=== PATIENT | female | born 1935 | race Caucasian/White ===

== ENCOUNTER 2016-11-23 08:52 | Emergency (ER) | payer MEDICARE ==
[~2016-11-23] VITALS: Ht 165.1 cm; Wt 72.6 kg
[~2016-11-23 08:52] MED LIST: AMBIEN10 M1 PO; AMBIEN5 MG PO; ATENOLOL50 MG PO; CELEBREX100 MG PO; CELEBREX200 MG PO; CETIRIZINE10 MG PO; COLSALIDE IMPR0.6 MG PO; COUMADIN10 M1 PO; COUMADIN3 M1 PO; COUMADIN7.5 M1 PO; DILTIAZEM 24HR120 MG PO; DILTIAZEM CD240 MG PO; DOXYCYCLINE100 M3 PO; DULE1ARO INH; DULE1ARO1 INH; DULER200 INH; DULER200 PO; EFFEXOR XR75 M2 PO; FOSAMAX70 M1 PO; FOSAMAX70 MG PO; IMDUR SA30 MG PO; IMDUR30 MG PO; ISOSORBIDE30 MG PO; K-DUR20 MEQ PO; K-TAB20 MEQ PO; LANOXIN0.125 MG PO; LASIX20 MG PO; LASIX40 MG PO; LASIX80 MG PO; LEVOTHYROXIN0.125 M1 PO; LEVOTHYROXIN0.125 MG PO; LEVOTHYROXINE0.15 M1 PO; METFORMIN500 MG PO; METOPROLOL TART50 M1 PO; MYSOLINE50 M1 PO; MYSOLINE50 M2 PO; OXYGEN NAS; PROAIR HFA0.09 MG/AC INH; PROVENTIL0.09 MG/A1 INH; SIMVASTATIN40 MG PO; SPIRIVA -- 3018 MCG INH; SPIRIVA18 MCG PO; Synthroid,Lev125 MCG PO; TRAZODONE50 MG PO; VENLAFAXINE75 M1 PO; VENLAFAXINE75 MG PO; VICODIN 5-3001 EACH PO; VICODIN 500 MG-1 TAB PO; VITAMIN D350000 UNIT PO; VITAMIN D50000 I3 PO; XANAX0.25 MG PO; XANAX0.5 MG PO; ZOCOR40 MG PO; ZYRTEC10 MG PO
[2016-11-23 09:07] VITALS: BP 117/72
[2016-11-23 09:31] LABS: BASO % 0.7 % (0.0-1.0); EOS # 0.1 10*3/uL (0.0-0.4); EOS % 1.3 % (1.0-4.0); HEMATOCRIT 28.9 % (37.0-47.0); HEMOGLOBIN 9.2 g/dl (12.0-16.0); LYMPH # 0.7 10*3/uL (1.3-4.4); LYMPH % 13.5 % (27.0-41.0); MEAN CELL VOLUME 93.5 fl (81.0-99.0); MEAN CORPUSCULAR HGB 29.8 pg (27.0-31.0); MEAN CORPUSCULAR HGB CONC 31.8 g/dl (33.0-37.0); MEAN PLATELET VOLUME 9.1 fl (9.6-12.3); MONO # 0.4 10*3/uL (0.1-1.0); MONO % 6.6 % (3.0-9.0); NEUT # 4.2 10*3/uL (2.3-7.9); NEUT % 77.3 % (47.0-73.0); PLATELET COUNT AUTOMATED 187 10*3/uL (130-400); RED BLOOD COUNT 3.09 10*6/uL (4.10-5.10); RED CELL DISTRI WIDTH 15.3 % (0-14.5); WHITE BLOOD COUNT 5.4 10*3/uL (4.8-10.8)
[2016-11-23 09:39] LABS: INTERNATIONAL NORM RATIO 2.7 (2.0-3.5); PROTHROMBIN TIME 30.7 SECONDS (9.0-12.4)
[2016-11-23 09:51] LABS: ALBUMIN 3.4 gm/dl (3.1-4.5); ALKALINE PHOSPHATASE 60 U/L (45-117); BILIRUBIN, TOTAL 0.2 mg/dl (0.2-1.0); BUN 25 mg/dl (7-24); CARBON DIOXIDE 27 mmol/L (21-32); CHLORIDE 102 mmol/L (98-107); CPK 66 U/L (26-192); EST GLOM FILT AFRICAN AMERICAN 52 ml/min; GLUCOSE 106 mg/dL (65-99); MAGNESIUM 2.2 mg/dL (1.5-2.1); POTASSIUM 4.3 mmol/L (3.5-5.1); SGOT/AST 20 IU/L (3-35); SGPT/ALT 14 U/L (12-78); SODIUM 138 mmol/L (136-145)
[2016-11-23 09:52] LABS: CKMB 1.8 ng/ml (0.5-3.6); TROPONIN I < 0.015 ng/ml (<0.045)
== END 2016-11-23 12:19 | disposition home or self-care (01) ==
LOC: ED 08:52
PROVIDERS: Nurse Practitioner Family
DX: S22.42XA Multiple fractures of ribs, left side, initial encounter for closed fracture (principal); I48.91 Unspecified atrial fibrillation; I25.10 Atherosclerotic heart disease of native coronary artery without angina pectoris; J44.9 Chronic obstructive pulmonary disease, unspecified; E11.9 Type 2 diabetes mellitus without complications; I25.2 Old myocardial infarction; I10 Essential (primary) hypertension; Z86.73 Personal history of transient ischemic attack (TIA), and cerebral infarction without residual deficits; Z86.2 Personal history of diseases of the blood and blood-forming organs and certain disorders involving the immune mechanism; Z90.49 Acquired absence of other specified parts of digestive tract; Z90.710 Acquired absence of both cervix and uterus; Z95.1 Presence of aortocoronary bypass graft; Z96.651 Presence of right artificial knee joint; Z79.899 Other long term (current) drug therapy; W19.XXXA Unspecified fall, initial encounter; Y93.89 Activity, other specified; Y92.89 Other specified places as the place of occurrence of the external cause; Y99.9 Unspecified external cause status

== ENCOUNTER 2016-12-10 15:06 | Emergency (ER) | payer MEDICARE ==
[~2016-12-10] VITALS: Ht 157.4 cm; Wt 74.8 kg
[2016-12-10 15:13] VITALS: BP 134/63
[2016-12-10] MEDS ORDERED: VENLAFAXINE75 M1 PO (15:18)
[2016-12-10] MEDS ORDERED: METOLAZONE2.5 MG PO (15:18)
[2016-12-10] MEDS ORDERED: LOPRESSOR50 M1 PO (15:20)
[2016-12-10] MEDS ORDERED: CARDIZEM CD120 M2 PO (15:20)
[2016-12-10] MEDS ORDERED: ALBUTEROL SULF0.5 M1 INH (15:21)
[2016-12-10 15:34] LABS: BASO # 0.1 10*3/uL (0.0-0.1); BASO % 0.8 % (0.0-1.0); EOS # 0.3 10*3/uL (0.0-0.4); EOS % 3.7 % (1.0-4.0); HEMATOCRIT 35.8 % (37.0-47.0); HEMOGLOBIN 11.6 g/dl (12.0-16.0); IG # 0.1 10*3/uL (0.0-0.1); LYMPH # 1.4 10*3/uL (1.3-4.4); LYMPH % 19.4 % (27.0-41.0); MEAN CELL VOLUME 90.6 fl (81.0-99.0); MEAN CORPUSCULAR HGB 29.4 pg (27.0-31.0); MEAN CORPUSCULAR HGB CONC 32.4 g/dl (33.0-37.0); MEAN PLATELET VOLUME 9.7 fl (9.6-12.3); MONO # 0.7 10*3/uL (0.1-1.0); NEUT # 4.8 10*3/uL (2.3-7.9); NEUT % 65.4 % (47.0-73.0); PLATELET COUNT AUTOMATED 272 10*3/uL (130-400); RED BLOOD COUNT 3.95 10*6/uL (4.10-5.10); RED CELL DISTRI WIDTH 14.4 % (0-14.5); WHITE BLOOD COUNT 7.4 10*3/uL (4.8-10.8)
[2016-12-10 15:42] LABS: INTERNATIONAL NORM RATIO 2.7 (2.0-3.5); PROTHROMBIN TIME 30.5 SECONDS (9.0-12.4)
[2016-12-10 15:50] LABS: ALBUMIN 3.8 gm/dl (3.1-4.5); ALKALINE PHOSPHATASE 87 U/L (45-117); BILIRUBIN, TOTAL 0.5 mg/dl (0.2-1.0); BUN 31 mg/dl (7-24); CARBON DIOXIDE 30 mmol/L (21-32); CHLORIDE 93 mmol/L (98-107); CPK 53 U/L (26-192); EST GLOM FILT AFRICAN AMERICAN 44 ml/min; GLUCOSE 110 mg/dL (65-99); LDH 239 U/L (84-246); MAGNESIUM 1.9 mg/dL (1.5-2.1); POTASSIUM 3.6 mmol/L (3.5-5.1); SGOT/AST 26 IU/L (3-35); SGPT/ALT 11 U/L (12-78); SODIUM 136 mmol/L (136-145); TOTAL PROTEIN 8.2 gm/dL (6.4-8.2)
[2016-12-10 15:51] LABS: CKMB 1.2 ng/ml (0.5-3.6)
[2016-12-10 15:59] LABS: TROPONIN I < 0.015 ng/ml (<0.045)
[2016-12-10 17:20] LABS: BILIRUBIN NEGATIVE (NEGATIVE); BLOOD NEGATIVE (NEGATIVE); CLARITY CLEAR (CLEAR); COLOR YELLOW (YELLOW); GLUCOSE NEGATIVE (NEGATIVE); KETONE NEGATIVE (NEGATIVE); LEUKO ESTERASE NEGATIVE (NEGATIVE); NITRITE NEGATIVE (NEGATIVE); PH 6.5 (5.0-9.0); PROTEIN NEGATIVE (NEGATIVE); UROBILINOGEN 0.2 E.U./dl (0.2-1.0)
[2016-12-10 17:30] LABS: BACTERIA TRACE; HYALINE CAST 0-3; URINE REFLEX COMMENT NO (NO)
== END 2016-12-10 18:18 | disposition home or self-care (01) ==
LOC: ED 15:06
PROVIDERS: Physician Assistant
DX: S01.81XA Laceration without foreign body of other part of head, initial encounter (principal); S49.91XA Unspecified injury of right shoulder and upper arm, initial encounter; Z79.899 Other long term (current) drug therapy; Z79.02 Long term (current) use of antithrombotics/antiplatelets; W18.39XA Other fall on same level, initial encounter; Y93.89 Activity, other specified; Y92.090 Kitchen in other non-institutional residence as the place of occurrence of the external cause; Y99.9 Unspecified external cause status

== ENCOUNTER → 2016-12-17 | Outpatient (CLI) | payer MEDICARE ==
[~2016-12-17] MED LIST changes: +ALBUTEROL SULF0.5 M1 INH; +CARDIZEM CD120 M2 PO; +LOPRESSOR50 M1 PO; +METOLAZONE2.5 MG PO
== END | disposition home or self-care (01) ==
LOC: ORTHO 01:19
DX: S42.91XA Fracture of right shoulder girdle, part unspecified, initial encounter for closed fracture (principal); X58.XXXA Exposure to other specified factors, initial encounter; Y93.89 Activity, other specified; Y92.89 Other specified places as the place of occurrence of the external cause; Y99.8 Other external cause status

== ENCOUNTER 2016-12-27 17:46 | Inpatient (IN) | payer MEDICARE ==
[~2016-12-27] VITALS: Ht 160 cm; Wt 74.2 kg
--- NOTE | ~2016-12-27 | CON ---
[place], [place] REPORT OF CONSULTATION NAME: [facility] [id number] UNIT #: [id number] ROOM: 409 DOCTOR: LEROY VELAZQUEZ MD BIRTHDATE: [birth year] DOS: 12/29/2016 HISTORY OF PRESENT ILLNESS: An 81-year-old patient who presented with a chief complaint of epigastric abdominal pain, prolonged INR, toxic level at greater than 7.6, this has been addressed with PT/PTT of 91 seconds and 60 seconds respectively. She had a panel of workup done. Chest x-ray was right pleural effusion, mild cardiac enlargement, otherwise unremarkable. CT scan of the head, no acute pathology was seen. Cervical spine, no acute fracture. Lactic acid was normal. CBC differential, H and H of 8 and 27, platelet count 271. Comprehensive metabolic panel: BUN and creatinine 25 and 1.0. INR has been followed up to 6.9 and eventually to 3.2 today morning. Urine culture greater than 100,000, heavy Gram-positive cocci. She is on antibiotic Rocephin 1 gram. Her latest CBC: H and H of 9 and 28. ____ LABORATORY DATA: Reviewed. Records reviewed. Basic metabolic panel reassessed. PAST MEDICAL HISTORY: COPD, congestive heart failure, coronary artery disease, diabetes mellitus, gout, CVA and myocardial infarction. PAST SURGICAL HISTORY: Cholecystectomy, coronary artery bypass, hysterectomy, appendectomy. SOCIAL HISTORY: No smoker, nonalcohol consumer. FAMILY HISTORY: Noncontributory. ALLERGIES: To no known medications. MEDICATIONS: Medication list has been reviewed on Celebrex as well as on Coumadin. Coumadin on hold. REVIEW OF SYSTEMS: HEENT: Denies double vision, blurred vision. RESPIRATORY: Some shortness of breath. CARDIOVASCULAR: Denies chest pain. DIGESTIVE SYSTEM: GI bleed, prolonged INR, and anemia. PHYSICAL EXAMINATION: VITAL SIGNS: Stable and afebrile. HEENT: Within normal limits. Alert. NECK: Supple, no thyromegaly, no cervical lymphadenopathy. CHEST: Symmetric anatomy, equal expansion. No wheeze, no rhonchi. HEART: ____. No rub. EXTREMITIES: 2+ pedal edema. NEUROLOGIC: Alert and oriented. IMPRESSION: Urinary tract infection and anemia, Coumadin toxicity, on Celebrex possibility. [place], [place] REPORT OF CONSULTATION NAME: ELIZABETH JUÁREZ UNIT #: [id number] ROOM: 409 DOCTOR: CAROLINE BECKER,LEROY BIRTHDATE: [birth year] PLAN AND DISCUSSION: We are going to await further correction of INR by tomorrow and then tomorrow, we will give her prep for assessment of upper and lower GI tract. Once the INR is corrected tomorrow, then we will get the chance to prep upper and lower GI tract and then EGD and colonoscopy on Tuesday. OTHER ADJUNCTIVE DIAGNOSES: As outlined in paragraph past medical, surgical history. LEROY VELAZQUEZ MD CM:CONSTR:REPORT OF CONSULTATION 1148 12/30/16 0151 interface
--- NOTE | ~2016-12-27 | O ---
[place], [place] OPERATIVE NOTE NAME: ELIZABETH JUÁREZ UNIT #: [id number] ROOM: 409 DOCTOR: LEROY VELAZQUEZ MD BIRTHDATE: [birth year] DOS: 12/31/2016 GASTROENDOSCOPIC REPORT HISTORY OF PRESENT ILLNESS: This is an 81 years old patient who has presented with anemia, GI bleed and prolonged INR. Multiple hematomas on Coumadin for corrected INR. PROCEDURE: Today's procedure part of investigation is panendoscopy, colonoscopy. PREMEDICATION: Versed and Diprivan. SCOPE: Olympus forward-viewing gastroscope Q10 video. REPORT: After putting the patient in the left lateral position and after application of lubricant to the scope, the scope was introduced. Thereafter, under direct visualization, I advanced through the length of the esophagus without difficulty. Distal esophageal ulcer, hiatal hernia was noticed. Gastric pouch was entered. Gastritis was seen. Duodenal bulb, second and third part within normal limits. No biopsy obtained, photographic series done. The patient extubated, tolerated procedure well. IMPRESSION: Distal esophageal ulcer, hiatal hernia, gastritis, status post biopsy. PLAN AND DISCUSSION: PPI would be sufficed with Protonix 40 mg 1 q. day and we are going to proceed with colonoscopy. GASTROENDOSCOPIC REPORT INDICATIONS: The patient has presented with a chief complaint of anemia, drop in H and H, GI bleed. . PROCEDURE: Today's procedure part of investigation is colonoscopy. PREMEDICATION: Versed and Diprivan. SCOPE: Olympus forward-viewing colonoscope 10L video. REPORT: After putting the patient in the left lateral position and after application of lubricant to rectal pouch and digital examination, scope was introduced. Thereafter, under direct visualization, I advanced through the length of colon with great difficulty. Presence of solid stool hinders visualization and limits visualization to only 10%. The patient had to be extubated, tolerated the procedure well. IMPRESSION: Retained stool. [place], [place] OPERATIVE NOTE NAME: ELIZABETH JUÁREZ UNIT #: [id number] ROOM: 409 DOCTOR: LEROY VELAZQUEZ MD BIRTHDATE: [birth year] PLAN AND DISCUSSION: I am going to proceed with feeding the patient. Thank you very much indeed. LEROY VELAZQUEZ MD CM:LEANNEORD:OPERATIVE NOTE 1816 01 LEROY VELAZQUEZ MD 12/31/16 2203 interface
--- NOTE | ~2016-12-27 | CON ---
[place], [place] REPORT OF CONSULTATION NAME: ELIZABETH JUÁREZ UNIT #: [id number] ROOM: 409 DOCTOR: CAROLINE BECKERLEROY BIRTHDATE: [birth year] DOS: GASTROENDOSCOPIC REPORT HISTORY OF PRESENT ILLNESS: An 81-year-old patient who has presented with multiple medical problems, among which has ended up falling episode, atrial fibrillation, GI bleed, prolonged INR and this has been all addressed. The patient has been stabilized for GI assessment. However, she was refusing colonic prep, Dulcolax tablets were organized. PAST MEDICAL HISTORY: Congestive heart failure, atrial fibrillation, diabetes, COPD, CVA, parkinsonism. PAST SURGICAL HISTORY: Cholecystectomy, appendectomy and coronary artery bypass, hysterectomy. SOCIAL HISTORY: Nonsmoker, nonalcohol consumer. FAMILY HISTORY: Noncontributory. ALLERGIES: No known. MEDICATIONS: List has been reviewed. The patient has been on Coumadin. Coumadin has been placed on hold. REVIEW OF SYSTEMS: HEENT: Denies double vision, blurred vision. RESPIRATORY: Denies shortness of breath. CARDIOVASCULAR: Denies chest pain. DIGESTIVE SYSTEM: GI bleed. PHYSICAL EXAMINATION: VITAL SIGNS: Stable. HEENT: Multiple bruises in face and body was noticed, this is secondary to post-falling episode. Mouth and buccal mucosa benign. NECK: Supple, no thyromegaly. CHEST: Symmetric anatomy, equal expansion. No wheeze, no rhonchi. HEART: Atrial fibrillation, moderate ventricular response. ABDOMEN: Soft. No hepato-organomegaly. Bowel sounds present. EXTREMITIES: Multiple small hematoma was noticed. Right arm in sling. NEUROLOGIC: Alert and slow. Both daughters are present at the bedside. The patient was interviewed in the presence of the family. Urine culture has been reviewed, greater than 100,000 bacteria, antibiotic management noticed. GFR greater than 60. CBC: H and H of 8 and 25, platelets of 295,000, all has been addressed. LABORATORY DATA: Reviewed. Records reviewed. Data reviewed. Her comprehensive metabolic panel 3 days ago with BUN and creatinine 25 and 1.1. Lactic acid initially was 1.8. Her INR initially was 7.6 with a PT of 91, PTT [place], [place] REPORT OF CONSULTATION NAME: ELIZABETH JUÁREZ UNIT #: [id number] ROOM: 409 DOCTOR: CAROLINE BECKER,LEROY BIRTHDATE: [birth year] of 59. DICTATION ENDS ABRUPTLY HERE.... LEROY VELAZQUEZ MD CM:CONSTR:REPORT OF CONSULTATION 1811 01/01/17 2012 interface
[2016-12-27] MEDS ORDERED: RIVASTIGMINE1 EACH TD (17:56)
[2016-12-27] MEDS ORDERED: METOLAZONE2.5 MG PO (17:56)
[2016-12-27 17:57] VITALS: BP 104/47
[2016-12-27 19:17] LABS: BASO % 0.3 % (0.0-1.0); EOS # 0.2 10*3/uL (0.0-0.4); EOS % 2.5 % (1.0-4.0); HEMATOCRIT 27.6 % (37.0-47.0); HEMOGLOBIN 8.7 g/dl (12.0-16.0); LYMPH # 0.9 10*3/uL (1.3-4.4); LYMPH % 14.8 % (27.0-41.0); MEAN CORPUSCULAR HGB CONC 31.5 g/dl (33.0-37.0); MEAN PLATELET VOLUME 9.5 fl (9.6-12.3); MONO # 0.6 10*3/uL (0.1-1.0); MONO % 9.4 % (3.0-9.0); NEUT # 4.6 10*3/uL (2.3-7.9); NEUT % 72.5 % (47.0-73.0); PLATELET COUNT AUTOMATED 273 10*3/uL (130-400); RED CELL DISTRI WIDTH 15.4 % (0-14.5); WHITE BLOOD COUNT 6.4 10*3/uL (4.8-10.8)
[2016-12-27 19:29] VITALS: BP 105/52
[2016-12-27 19:34] LABS: ALBUMIN 2.9 gm/dl (3.1-4.5); ALKALINE PHOSPHATASE 132 U/L (45-117); BILIRUBIN, TOTAL 0.4 mg/dl (0.2-1.0); BUN 25 mg/dl (7-24); CARBON DIOXIDE 28 mmol/L (21-32); CHLORIDE 99 mmol/L (98-107); CPK 50 U/L (26-192); EST GLOM FILT AFRICAN AMERICAN > 60 ml/min; GLUCOSE 76 mg/dL (65-99); MAGNESIUM 2.1 mg/dL (1.5-2.1); POTASSIUM 4.2 mmol/L (3.5-5.1); SGOT/AST 23 IU/L (3-35); SGPT/ALT 12 U/L (12-78); SODIUM 135 mmol/L (136-145)
[2016-12-27 19:35] LABS: PROTHROMBIN TIME 91.8 SECONDS (9.0-12.4)
[2016-12-27 19:36] LABS: CKMB 1.1 ng/ml (0.5-3.6); TROPONIN I < 0.015 ng/ml (<0.045)
[2016-12-27 19:38] LABS: INTERNATIONAL NORM RATIO 7.6 (2.0-3.5)
[2016-12-27 20:09] VITALS: BP 113/56
[2016-12-27 21:26] VITALS: BP 100/46
[2016-12-27 21:30] VITALS: BP 94/40
[2016-12-27 22:00] VITALS: BP 109/64
[2016-12-28] VITALS: BP 122/71
[2016-12-28 00:22] LABS: HEMATOCRIT 27.3 % (37.0-47.0); HEMOGLOBIN 8.8 g/dl (12.0-16.0)
[2016-12-28 06:09] LABS: BILIRUBIN NEGATIVE (NEGATIVE); BLOOD TRACE-INTACT (NEGATIVE); CLARITY CLEAR (CLEAR); COLOR YELLOW (YELLOW); GLUCOSE NEGATIVE (NEGATIVE); KETONE NEGATIVE (NEGATIVE); LEUKO ESTERASE 2+ (NEGATIVE); NITRITE NEGATIVE (NEGATIVE); PROTEIN NEGATIVE (NEGATIVE); UROBILINOGEN 0.2 E.U./dl (0.2-1.0)
[2016-12-28 06:35] LABS: BACTERIA 1+; URINE REFLEX COMMENT YES (NO)
[2016-12-28 06:41] LABS: BASO % 0.8 % (0.0-1.0); EOS # 0.2 10*3/uL (0.0-0.4); HEMATOCRIT 27.1 % (37.0-47.0); HEMOGLOBIN 8.7 g/dl (12.0-16.0); LYMPH # 0.8 10*3/uL (1.3-4.4); LYMPH % 16.2 % (27.0-41.0); MEAN CELL VOLUME 91.6 fl (81.0-99.0); MEAN CORPUSCULAR HGB 29.4 pg (27.0-31.0); MEAN CORPUSCULAR HGB CONC 32.1 g/dl (33.0-37.0); MEAN PLATELET VOLUME 9.3 fl (9.6-12.3); MONO # 0.5 10*3/uL (0.1-1.0); MONO % 9.1 % (3.0-9.0); NEUT # 3.5 10*3/uL (2.3-7.9); NEUT % 70.3 % (47.0-73.0); PLATELET COUNT AUTOMATED 267 10*3/uL (130-400); RED BLOOD COUNT 2.96 10*6/uL (4.10-5.10); RED CELL DISTRI WIDTH 15.3 % (0-14.5); WHITE BLOOD COUNT 4.9 10*3/uL (4.8-10.8)
[2016-12-28 06:50] LABS: HEMOGLOBIN A1c 5.5 % (4.8-5.6)
[2016-12-28 07:07] LABS: BUN 21 mg/dl (7-24); CARBON DIOXIDE 27 mmol/L (21-32); CHLORIDE 101 mmol/L (98-107); CHOLESTEROL 120 mg/dL (<200); EST GLOM FILT AFRICAN AMERICAN > 60 ml/min; FREE T4 1.29 ng/dl (0.76-1.46); GLUCOSE 90 mg/dL (65-99); HDL CHOLESTEROL 41 mg/dl (40-60); LDL CHOLESTEROL 57 mg/dL (9-159); MAGNESIUM 1.9 mg/dL (1.5-2.1); POTASSIUM 3.9 mmol/L (3.5-5.1); SODIUM 135 mmol/L (136-145); TRIGLYCERIDES 110 mg/dl (<150); VLDL CHOLESTEROL 22 mg/dL (6-40)
[2016-12-28 07:17] LABS: PROTHROMBIN TIME 82.3 SECONDS (9.0-12.4)
[2016-12-28 07:22] LABS: INTERNATIONAL NORM RATIO 6.9 (2.0-3.5)
[2016-12-28 08:00] VITALS: BP 119/43
[2016-12-28 08:16] LABS: VITAMIN D, 25-HYDROXY 62.8 ng/mL (30-100)
[2016-12-28 08:17] LABS: FOLIC ACID 5.2 ng/mL (>5.38)
[2016-12-28 12:00] VITALS: BP 91/69
[2016-12-28 16:00] VITALS: BP 108/65
[2016-12-28 20:00] VITALS: BP 109/66
[2016-12-29 00:01] VITALS: BP 121/48
[2016-12-29 07:09] LABS: BASO % 0.5 % (0.0-1.0); EOS # 0.2 10*3/uL (0.0-0.4); EOS % 2.7 % (1.0-4.0); HEMATOCRIT 28.6 % (37.0-47.0); IG # 0.1 10*3/uL (0.0-0.1); LYMPH # 0.8 10*3/uL (1.3-4.4); LYMPH % 12.2 % (27.0-41.0); MEAN CELL VOLUME 93.2 fl (81.0-99.0); MEAN CORPUSCULAR HGB 29.3 pg (27.0-31.0); MEAN CORPUSCULAR HGB CONC 31.5 g/dl (33.0-37.0); MEAN PLATELET VOLUME 9.7 fl (9.6-12.3); MONO # 0.7 10*3/uL (0.1-1.0); NEUT # 4.5 10*3/uL (2.3-7.9); NEUT % 72.6 % (47.0-73.0); PLATELET COUNT AUTOMATED 280 10*3/uL (130-400); RED BLOOD COUNT 3.07 10*6/uL (4.10-5.10); RED CELL DISTRI WIDTH 15.6 % (0-14.5); WHITE BLOOD COUNT 6.2 10*3/uL (4.8-10.8)
[2016-12-29 07:28] LABS: BUN 19 mg/dl (7-24); CARBON DIOXIDE 30 mmol/L (21-32); CHLORIDE 101 mmol/L (98-107); EST GLOM FILT AFRICAN AMERICAN > 60 ml/min; GLUCOSE 107 mg/dL (65-99); INTERNATIONAL NORM RATIO 3.2 (2.0-3.5); POTASSIUM 4.3 mmol/L (3.5-5.1); PROTHROMBIN TIME 36.1 SECONDS (9.0-12.4); SODIUM 138 mmol/L (136-145)
[2016-12-29 08:00] VITALS: BP 104/79
[2016-12-29 12:00] VITALS: BP 138/65
[2016-12-29 16:00] VITALS: BP 151/93
[2016-12-29 20:00] VITALS: BP 152/92
[2016-12-29 20:40] VITALS: BP 148/80
[2016-12-30 00:19] VITALS: BP 92/57
[2016-12-30 06:10] LABS: BASO % 0.5 % (0.0-1.0); EOS # 0.2 10*3/uL (0.0-0.4); EOS % 4.1 % (1.0-4.0); HEMATOCRIT 25.3 % (37.0-47.0); HEMOGLOBIN 8.1 g/dl (12.0-16.0); LYMPH # 1.2 10*3/uL (1.3-4.4); LYMPH % 19.8 % (27.0-41.0); MEAN CELL VOLUME 90.7 fl (81.0-99.0); MEAN PLATELET VOLUME 9.7 fl (9.6-12.3); MONO # 0.7 10*3/uL (0.1-1.0); MONO % 11.3 % (3.0-9.0); NEUT # 3.7 10*3/uL (2.3-7.9); NEUT % 63.6 % (47.0-73.0); PLATELET COUNT AUTOMATED 250 10*3/uL (130-400); RED BLOOD COUNT 2.79 10*6/uL (4.10-5.10); RED CELL DISTRI WIDTH 15.3 % (0-14.5); WHITE BLOOD COUNT 5.8 10*3/uL (4.8-10.8)
[2016-12-30 06:21] LABS: BUN 20 mg/dl (7-24); CARBON DIOXIDE 30 mmol/L (21-32); CHLORIDE 97 mmol/L (98-107); EST GLOM FILT AFRICAN AMERICAN > 60 ml/min; GLUCOSE 102 mg/dL (65-99); POTASSIUM 3.4 mmol/L (3.5-5.1); SODIUM 137 mmol/L (136-145)
[2016-12-30 06:37] LABS: INTERNATIONAL NORM RATIO 1.4 (2.0-3.5); PROTHROMBIN TIME 15.2 SECONDS (9.0-12.4)
[2016-12-30 08:00] VITALS: BP 147/69
[2016-12-30 12:00] VITALS: BP 99/67
[2016-12-30 16:00] VITALS: BP 110/64
[2016-12-30 20:00] VITALS: BP 107/58
[2016-12-31] VITALS (7 sets, daily range): BP systolic 107–128; BP diastolic 48–68
[2016-12-31 06:25] LABS: BASO % 0.7 % (0.0-1.0); EOS # 0.2 10*3/uL (0.0-0.4); EOS % 3.7 % (1.0-4.0); HEMATOCRIT 26.5 % (37.0-47.0); HEMOGLOBIN 8.5 g/dl (12.0-16.0); LYMPH # 0.8 10*3/uL (1.3-4.4); LYMPH % 14.1 % (27.0-41.0); MEAN CELL VOLUME 91.7 fl (81.0-99.0); MEAN CORPUSCULAR HGB 29.4 pg (27.0-31.0); MEAN CORPUSCULAR HGB CONC 32.1 g/dl (33.0-37.0); MEAN PLATELET VOLUME 9.5 fl (9.6-12.3); MONO # 0.7 10*3/uL (0.1-1.0); MONO % 12.7 % (3.0-9.0); NEUT # 3.9 10*3/uL (2.3-7.9); NEUT % 68.1 % (47.0-73.0); PLATELET COUNT AUTOMATED 295 10*3/uL (130-400); RED BLOOD COUNT 2.89 10*6/uL (4.10-5.10); RED CELL DISTRI WIDTH 15.3 % (0-14.5); WHITE BLOOD COUNT 5.7 10*3/uL (4.8-10.8)
[2016-12-31 06:37] LABS: BUN 20 mg/dl (7-24); CARBON DIOXIDE 30 mmol/L (21-32); CHLORIDE 95 mmol/L (98-107); EST GLOM FILT AFRICAN AMERICAN > 60 ml/min; GLUCOSE 99 mg/dL (65-99); POTASSIUM 3.5 mmol/L (3.5-5.1); SODIUM 136 mmol/L (136-145)
[2016-12-31 07:01] LABS: INTERNATIONAL NORM RATIO 1.2 (2.0-3.5); PROTHROMBIN TIME 12.3 SECONDS (9.0-12.4)
[2017-01-01] VITALS: BP 117/55
[2017-01-01 06:59] LABS: BASO # 0.1 10*3/uL (0.0-0.1); BASO % 0.8 % (0.0-1.0); EOS # 0.1 10*3/uL (0.0-0.4); EOS % 1.8 % (1.0-4.0); HEMATOCRIT 28.7 % (37.0-47.0); HEMOGLOBIN 9.3 g/dl (12.0-16.0); LYMPH # 0.8 10*3/uL (1.3-4.4); LYMPH % 12.2 % (27.0-41.0); MEAN CELL VOLUME 91.1 fl (81.0-99.0); MEAN CORPUSCULAR HGB 29.5 pg (27.0-31.0); MEAN CORPUSCULAR HGB CONC 32.4 g/dl (33.0-37.0); MEAN PLATELET VOLUME 9.4 fl (9.6-12.3); MONO # 0.7 10*3/uL (0.1-1.0); NEUT # 4.9 10*3/uL (2.3-7.9); NEUT % 74.6 % (47.0-73.0); PLATELET COUNT AUTOMATED 306 10*3/uL (130-400); RED BLOOD COUNT 3.15 10*6/uL (4.10-5.10); RED CELL DISTRI WIDTH 15.6 % (0-14.5); WHITE BLOOD COUNT 6.5 10*3/uL (4.8-10.8)
[2017-01-01 07:35] LABS: INTERNATIONAL NORM RATIO 1.1 (2.0-3.5); PROTHROMBIN TIME 11.7 SECONDS (9.0-12.4)
[2017-01-01 08:00] VITALS: BP 112/49
[2017-01-01] MEDS ORDERED: SEPTRA DS 800 M1 TAB PO (12:07)
[2017-01-01] MEDS ORDERED: PROTONIX40 MG PO (12:07)
[2017-01-01] MEDS ORDERED: COUMADIN6 M2 PO (12:12)
[2017-01-01] MEDS ORDERED: COUMADIN2 M1 PO (12:12)
== END 2017-01-01 12:59 | disposition home health service (06) | DRG 682 ==
LOC: ED 17:46 → EDHOLD 20:08 → 4E 20:08
PROVIDERS: Internal Medicine; Nurse Practitioner Family
PROC: 0DJD8ZZ Inspection of Lower Intestinal Tract, Via Natural or Artificial Opening Endoscopic (ICD-10-PCS; principal; 2016-12-31)
PROC: 0DJ08ZZ Inspection of Upper Intestinal Tract, Via Natural or Artificial Opening Endoscopic (ICD-10-PCS; principal; 2016-12-31)
DX: N17.9 Acute kidney failure, unspecified (principal); K29.01 Acute gastritis with bleeding; E11.65 Type 2 diabetes mellitus with hyperglycemia; I50.9 Heart failure, unspecified; I11.0 Hypertensive heart disease with heart failure; K22.10 Ulcer of esophagus without bleeding; I48.2 Chronic atrial fibrillation; N39.0 Urinary tract infection, site not specified; R79.1 Abnormal coagulation profile; W19.XXXA Unspecified fall, initial encounter; J44.9 Chronic obstructive pulmonary disease, unspecified; I25.118 Atherosclerotic heart disease of native coronary artery with other forms of angina pectoris; M1A.9XX0 Chronic gout, unspecified, without tophus (tophi); D64.9 Anemia, unspecified; K44.9 Diaphragmatic hernia without obstruction or gangrene; S09.90XD Unspecified injury of head, subsequent encounter; S01.81XD Laceration without foreign body of other part of head, subsequent encounter; S49.91XD Unspecified injury of right shoulder and upper arm, subsequent encounter; Z86.73 Personal history of transient ischemic attack (TIA), and cerebral infarction without residual deficits; Z90.49 Acquired absence of other specified parts of digestive tract; Z90.710 Acquired absence of both cervix and uterus; Z95.5 Presence of coronary angioplasty implant and graft; Z83.3 Family history of diabetes mellitus; Z79.51 Long term (current) use of inhaled steroids; Z79.84 Long term (current) use of oral hypoglycemic drugs; Z79.01 Long term (current) use of anticoagulants; Z79.899 Other long term (current) drug therapy

== ENCOUNTER 2017-03-03 19:53 | Inpatient (IN) | payer MEDICARE ==
[~2017-03-03] VITALS: Ht 167.6 cm; Wt 77.6 kg
[~2017-03-03 19:53] MED LIST changes: +COUMADIN2 M1 PO; +COUMADIN6 M2 PO; +PROTONIX40 MG PO; +RIVASTIGMINE1 EACH TD; +SEPTRA DS 800 M1 TAB PO
[2017-03-03 20:02] VITALS: BP 110/60
[2017-03-03 20:29] LABS: BASO % 0.6 % (0.0-1.0); EOS # 0.1 10*3/uL (0.0-0.4); HEMATOCRIT 33.2 % (37.0-47.0); IG # 0.1 10*3/uL (0.0-0.1); LYMPH # 0.6 10*3/uL (1.3-4.4); LYMPH % 8.9 % (27.0-41.0); MEAN CELL VOLUME 94.1 fl (81.0-99.0); MEAN CORPUSCULAR HGB 28.3 pg (27.0-31.0); MEAN CORPUSCULAR HGB CONC 30.1 g/dl (33.0-37.0); MEAN PLATELET VOLUME 9.8 fl (9.6-12.3); MONO # 0.6 10*3/uL (0.1-1.0); MONO % 8.1 % (3.0-9.0); NEUT # 5.7 10*3/uL (2.3-7.9); NEUT % 80.7 % (47.0-73.0); PLATELET COUNT AUTOMATED 251 10*3/uL (130-400); RED BLOOD COUNT 3.53 10*6/uL (4.10-5.10); RED CELL DISTRI WIDTH 17.3 % (0-14.5); WHITE BLOOD COUNT 7.1 10*3/uL (4.8-10.8)
[2017-03-03 20:42] LABS: INTERNATIONAL NORM RATIO 1.1 (2.0-3.5); PROTHROMBIN TIME 11.9 SECONDS (9.0-12.4)
[2017-03-03 20:47] LABS: ALBUMIN 3.3 gm/dl (3.1-4.5); ALKALINE PHOSPHATASE 146 U/L (45-117); BILIRUBIN, TOTAL 0.6 mg/dl (0.2-1.0); BUN 29 mg/dl (7-24); CARBON DIOXIDE 20 mmol/L (21-32); CHLORIDE 100 mmol/L (98-107); CKMB 1.2 ng/ml (0.5-3.6); EST GLOM FILT AFRICAN AMERICAN 48 ml/min; GLUCOSE 124 mg/dL (65-99); POTASSIUM 5.3 mmol/L (3.5-5.1); SGOT/AST 38 IU/L (3-35); SGPT/ALT 16 U/L (12-78); SODIUM 136 mmol/L (136-145); TOTAL PROTEIN 7.7 gm/dL (6.4-8.2)
[2017-03-03 20:48] LABS: TROPONIN I < 0.015 ng/ml (<0.045)
[2017-03-03 21:05] LABS: ABG BASE EXCESS -4.6 mmol/L (-2.0-2.0); ABG CO2 CONTENT 20.3 mmol/L (23-27); ABG HCO3 19.3 mmol/l (22-26); ARTERIAL BLOOD GAS PH 7.387 (7.35-7.45)
[2017-03-03 21:45] VITALS: BP 112/68
[2017-03-03 22:26] LABS: LA>2 REFLEX 2 HR DRAW NOW
[2017-03-03 22:58] LABS: LA>2 RFLX FOLLOW UP AT 2 HRS 2.2 mmol/L (0.4-2.0)
[2017-03-03 23:45] VITALS: BP 98/62
[2017-03-04] VITALS: BP 106/70
[2017-03-04 00:53] LABS: LA>2 REFLEX 4 HR DRAW NOW
[2017-03-04 01:06] LABS: CKMB 1.1 ng/ml (0.5-3.6); CPK 60 U/L (26-192); LDH 326 U/L (84-246)
[2017-03-04 01:07] LABS: TROPONIN I < 0.015 ng/ml (<0.045)
[2017-03-04 01:12] LABS: BILIRUBIN NEGATIVE (NEGATIVE); BLOOD 1+ (NEGATIVE); CLARITY CLEAR (CLEAR); COLOR YELLOW (YELLOW); GLUCOSE NEGATIVE (NEGATIVE); KETONE NEGATIVE (NEGATIVE); LEUKO ESTERASE NEGATIVE (NEGATIVE); NITRITE NEGATIVE (NEGATIVE); PH 5.5 (5.0-9.0); PROTEIN NEGATIVE (NEGATIVE); UROBILINOGEN 0.2 E.U./dl (0.2-1.0)
[2017-03-04 01:29] LABS: URINE REFLEX COMMENT YES (NO); WBC 0-2 wbc/hpf (0-5)
[2017-03-04 04:00] VITALS: BP 113/63
[2017-03-04 04:19] LABS: ABG BASE EXCESS -3.1 mmol/L (-2.0-2.0); ABG CO2 CONTENT 22.8 mmol/L (23-27); ABG HCO3 21.6 mmol/l (22-26); ABG TEMPERATURE 98.2 F (98.0-99.0); ARTERIAL BLOOD GAS PH 7.358 (7.35-7.45)
[2017-03-04 04:51] LABS: LA>2 REFLEX 2 HR DRAW NOW
[2017-03-04 05:20] LABS: HEMATOCRIT 30.8 % (37.0-47.0); HEMOGLOBIN 9.5 g/dl (12.0-16.0); MEAN CELL VOLUME 93.6 fl (81.0-99.0); MEAN CORPUSCULAR HGB 28.9 pg (27.0-31.0); MEAN CORPUSCULAR HGB CONC 30.8 g/dl (33.0-37.0); MEAN PLATELET VOLUME 9.4 fl (9.6-12.3); PLATELET COUNT AUTOMATED 216 10*3/uL (130-400); RED BLOOD COUNT 3.29 10*6/uL (4.10-5.10); RED CELL DISTRI WIDTH 17.2 % (0-14.5); WHITE BLOOD COUNT 7.3 10*3/uL (4.8-10.8)
[2017-03-04 05:37] LABS: ALBUMIN 2.9 gm/dl (3.1-4.5); BILIRUBIN, TOTAL 0.6 mg/dl (0.2-1.0); TOTAL PROTEIN 6.9 gm/dL (6.4-8.2)
[2017-03-04 05:53] LABS: INTERNATIONAL NORM RATIO 1.3 (2.0-3.5); PROTHROMBIN TIME 13.6 SECONDS (9.0-12.4)
[2017-03-04 06:15] LABS: LYMPHOCYTE # 0.5 10*3/uL (1.3-4.4); MONOCYTE # 0.1 10*3/uL (0.1-1.0); NEUTROPHIL # 6.6 10*3/uL (2.3-7.9); NEUTROPHILS 91 % (47-73); OVALOCYTES FEW; PLATELET SUFFICIENCY NORMAL (NORMAL); POLYCHROMASIA SLIGHT; TOTAL CELLS COUNTED 100 #CELLS
[2017-03-04 08:00] VITALS: BP 110/53
[2017-03-04 12:00] VITALS: BP 107/48
[2017-03-04 16:00] VITALS: BP 102/49
[2017-03-04 20:00] VITALS: BP 103/59
[2017-03-05] VITALS: BP 91/45
[2017-03-05 04:00] VITALS: BP 104/62
[2017-03-05 08:00] VITALS: BP 102/44
[2017-03-05 12:00] VITALS: BP 105/62
[2017-03-05 12:08] LABS: BASO % 0.2 % (0.0-1.0); EOS % 0.4 % (1.0-4.0); HEMATOCRIT 31.4 % (37.0-47.0); HEMOGLOBIN 9.7 g/dl (12.0-16.0); IG # 0.1 10*3/uL (0.0-0.1); LYMPH # 0.5 10*3/uL (1.3-4.4); LYMPH % 5.2 % (27.0-41.0); MEAN CELL VOLUME 92.6 fl (81.0-99.0); MEAN CORPUSCULAR HGB 28.6 pg (27.0-31.0); MEAN CORPUSCULAR HGB CONC 30.9 g/dl (33.0-37.0); MEAN PLATELET VOLUME 8.8 fl (9.6-12.3); MONO # 0.7 10*3/uL (0.1-1.0); MONO % 6.9 % (3.0-9.0); NEUT # 8.8 10*3/uL (2.3-7.9); NEUT % 86.6 % (47.0-73.0); PLATELET COUNT AUTOMATED 220 10*3/uL (130-400); RED BLOOD COUNT 3.39 10*6/uL (4.10-5.10); RED CELL DISTRI WIDTH 17.2 % (0-14.5); WHITE BLOOD COUNT 10.1 10*3/uL (4.8-10.8)
[2017-03-05 12:35] LABS: POTASSIUM 4.4 mmol/L (3.5-5.1)
[2017-03-05 16:00] VITALS: BP 96/40
[2017-03-05 20:00] VITALS: BP 105/57
[2017-03-06] VITALS: BP 114/71
[2017-03-06 04:00] VITALS: BP 115/70
[2017-03-06 06:49] LABS: POTASSIUM 4.3 mmol/L (3.5-5.1)
[2017-03-06 08:00] VITALS: BP 122/65
[2017-03-06 12:00] VITALS: BP 109/54
[2017-03-06 16:00] VITALS: BP 115/55
[2017-03-06 20:00] VITALS: BP 110/53
[2017-03-07] VITALS: BP 105/48
[2017-03-07 08:00] VITALS: BP 141/75
[2017-03-07 12:00] VITALS: BP 113/49
[2017-03-07 16:00] VITALS: BP 127/75
[2017-03-07 16:09] LABS: LEGIONELLA URINARY ANTIGEN Negative (Negative); ORGANISM ID Not indicated. (.); SPECIMEN SOURCE Urine (.); STREPTOCOCCUS PNEUMONIAE AG Negative (Negative)
[2017-03-07 20:00] VITALS: BP 154/88
[2017-03-08] VITALS: BP 127/58
[2017-03-08 06:21] LABS: BASO % 0.5 % (0.0-1.0); EOS # 0.2 10*3/uL (0.0-0.4); EOS % 3.2 % (1.0-4.0); HEMATOCRIT 33.3 % (37.0-47.0); HEMOGLOBIN 10.3 g/dl (12.0-16.0); IG # 0.1 10*3/uL (0.0-0.1); LYMPH # 0.8 10*3/uL (1.3-4.4); LYMPH % 10.7 % (27.0-41.0); MEAN CELL VOLUME 92.8 fl (81.0-99.0); MEAN CORPUSCULAR HGB 28.7 pg (27.0-31.0); MEAN CORPUSCULAR HGB CONC 30.9 g/dl (33.0-37.0); MEAN PLATELET VOLUME 9.6 fl (9.6-12.3); MONO # 0.8 10*3/uL (0.1-1.0); MONO % 10.7 % (3.0-9.0); NEUT # 5.5 10*3/uL (2.3-7.9); NEUT % 74.2 % (47.0-73.0); PLATELET COUNT AUTOMATED 213 10*3/uL (130-400); RED BLOOD COUNT 3.59 10*6/uL (4.10-5.10); RED CELL DISTRI WIDTH 16.7 % (0-14.5); WHITE BLOOD COUNT 7.4 10*3/uL (4.8-10.8)
[2017-03-08 06:51] LABS: BUN 16 mg/dl (7-24); CARBON DIOXIDE 26 mmol/L (21-32); CHLORIDE 106 mmol/L (98-107); EST GLOM FILT AFRICAN AMERICAN > 60 ml/min; GLUCOSE 89 mg/dL (65-99); SODIUM 141 mmol/L (136-145)
[2017-03-08 08:00] VITALS: BP 116/65
[2017-03-08 12:00] VITALS: BP 123/84
[2017-03-08] MEDS ORDERED: METOPROLOL TART50 M1 PO (13:02)
[2017-03-08] MEDS ORDERED: DOXYCYCLINE100 M3 PO (13:02)
[2017-03-08] MEDS ORDERED: PREDNISONE10 MG PO (13:02)
[2017-03-08] MEDS ORDERED: MUCINEX ER600 MG PO (13:02)
== END 2017-03-08 15:31 | disposition home health service (06) | DRG 871 ==
LOC: ED 19:53 → EDHOLD 22:53 → ICCU 22:53 → 4E 23:04 → ICCU 03-04 00:57 → 4E 03-05 16:23
PROVIDERS: Emergency Medicine Emergency Medical Services; Family Medicine; Hospitalist; Internal Medicine; Internal Medicine Critical Care Medicine; Internal Medicine Hospice and Palliative Medicine
PROC: 5A09357 Assistance with Respiratory Ventilation, Less than 24 Consecutive Hours, Continuous Positive Airway Pressure (ICD-10-PCS; principal; 2017-03-04)
DX: A41.9 Sepsis, unspecified organism (principal); N17.0 Acute kidney failure with tubular necrosis; J96.21 Acute and chronic respiratory failure with hypoxia; I26.99 Other pulmonary embolism without acute cor pulmonale; I50.33 Acute on chronic diastolic (congestive) heart failure; J44.0 Chronic obstructive pulmonary disease with (acute) lower respiratory infection; J18.1 Lobar pneumonia, unspecified organism; I13.0 Hypertensive heart and chronic kidney disease with heart failure and stage 1 through stage 4 chronic kidney disease, or unspecified chronic kidney disease; J45.51 Severe persistent asthma with (acute) exacerbation; J44.1 Chronic obstructive pulmonary disease with (acute) exacerbation; E44.1 Mild protein-calorie malnutrition; I25.810 Atherosclerosis of coronary artery bypass graft(s) without angina pectoris; R65.20 Severe sepsis without septic shock; E87.5 Hyperkalemia; N18.9 Chronic kidney disease, unspecified; E11.22 Type 2 diabetes mellitus with diabetic chronic kidney disease; G47.33 Obstructive sleep apnea (adult) (pediatric); E03.9 Hypothyroidism, unspecified; E11.65 Type 2 diabetes mellitus with hyperglycemia; Z96.651 Presence of right artificial knee joint; E66.01 Morbid (severe) obesity due to excess calories; D64.9 Anemia, unspecified; F03.90 Unspecified dementia, unspecified severity, without behavioral disturbance, psychotic disturbance, mood disturbance, and anxiety; M1A.9XX0 Chronic gout, unspecified, without tophus (tophi); I48.2 Chronic atrial fibrillation; Z86.73 Personal history of transient ischemic attack (TIA), and cerebral infarction without residual deficits; Z79.52 Long term (current) use of systemic steroids; I25.2 Old myocardial infarction; Z87.81 Personal history of (healed) traumatic fracture; Z90.49 Acquired absence of other specified parts of digestive tract; Z99.81 Dependence on supplemental oxygen; Z68.27 Body mass index [BMI] 27.0-27.9, adult; Z90.710 Acquired absence of both cervix and uterus; Z95.1 Presence of aortocoronary bypass graft; Z98.49 Cataract extraction status, unspecified eye; Z83.6 Family history of other diseases of the respiratory system; Z83.3 Family history of diabetes mellitus; Z82.3 Family history of stroke; Z79.84 Long term (current) use of oral hypoglycemic drugs; Z79.899 Other long term (current) drug therapy; Z79.01 Long term (current) use of anticoagulants; Z91.81 History of falling; Z87.440 Personal history of urinary (tract) infections

== ENCOUNTER → 2017-03-28 | Outpatient (CLI) | payer MEDICARE ==
[~2017-03-28] MED LIST changes: +MUCINEX ER600 MG PO; +PREDNISONE10 MG PO
[2017-03-28 13:44] LABS: MAGNESIUM 1.9 mg/dL (1.5-2.1); POTASSIUM 3.8 mmol/L (3.5-5.1)
== END | disposition home or self-care (01) ==
LOC: LAB 12:58
PROVIDERS: Internal Medicine Cardiovascular Disease
DX: I50.20 Unspecified systolic (congestive) heart failure (principal)

== ENCOUNTER → 2017-04-01 | Outpatient (CLI) | payer MEDICARE | END | disposition home or self-care (01) | LOC: ORTHO 00:27 | DX: S42.91XD Fracture of right shoulder girdle, part unspecified, subsequent encounter for fracture with routine healing (principal); S42.291G Other displaced fracture of upper end of right humerus, subsequent encounter for fracture with delayed healing; X58.XXXD Exposure to other specified factors, subsequent encounter ==

== ENCOUNTER 2017-04-08 17:45 | Inpatient (IN) | payer MEDICARE ==
[~2017-04-08] VITALS: Ht 165.1 cm; Wt 70.5 kg
[2017-04-08 17:51] VITALS: BP 133/68
[2017-04-08 18:38] LABS: BASO % 0.6 % (0.0-1.0); EOS # 0.1 10*3/uL (0.0-0.4); EOS % 1.8 % (1.0-4.0); HEMATOCRIT 34.5 % (37.0-47.0); HEMOGLOBIN 10.5 g/dl (12.0-16.0); IG # 0.1 10*3/uL (0.0-0.1); LYMPH # 0.9 10*3/uL (1.3-4.4); LYMPH % 13.1 % (27.0-41.0); MEAN CELL VOLUME 93.8 fl (81.0-99.0); MEAN CORPUSCULAR HGB 28.5 pg (27.0-31.0); MEAN CORPUSCULAR HGB CONC 30.4 g/dl (33.0-37.0); MEAN PLATELET VOLUME 9.8 fl (9.6-12.3); MONO # 0.7 10*3/uL (0.1-1.0); MONO % 10.4 % (3.0-9.0); NEUT # 5.2 10*3/uL (2.3-7.9); NEUT % 73.1 % (47.0-73.0); PLATELET COUNT AUTOMATED 237 10*3/uL (130-400); RED BLOOD COUNT 3.68 10*6/uL (4.10-5.10); RED CELL DISTRI WIDTH 17.8 % (0-14.5); WHITE BLOOD COUNT 7.1 10*3/uL (4.8-10.8)
[2017-04-08 18:41] LABS: ALBUMIN 3.3 gm/dl (3.1-4.5); ALKALINE PHOSPHATASE 91 U/L (45-117); BILIRUBIN, TOTAL 0.4 mg/dl (0.2-1.0); BUN 24 mg/dl (7-24); CARBON DIOXIDE 26 mmol/L (21-32); CHLORIDE 104 mmol/L (98-107); EST GLOM FILT AFRICAN AMERICAN 58 ml/min; GLUCOSE 89 mg/dL (65-99); POTASSIUM 4.3 mmol/L (3.5-5.1); SGOT/AST 24 IU/L (3-35); SGPT/ALT 13 U/L (12-78); SODIUM 137 mmol/L (136-145); TOTAL PROTEIN 7.5 gm/dL (6.4-8.2)
[2017-04-08 18:42] LABS: TROPONIN I < 0.015 ng/ml (<0.045)
[2017-04-08 18:57] VITALS: BP 101/57
[2017-04-08 18:58] LABS: BILIRUBIN NEGATIVE (NEGATIVE); BLOOD NEGATIVE (NEGATIVE); CLARITY CLEAR (CLEAR); COLOR YELLOW (YELLOW); GLUCOSE NEGATIVE (NEGATIVE); KETONE NEGATIVE (NEGATIVE); LEUKO ESTERASE NEGATIVE (NEGATIVE); NITRITE NEGATIVE (NEGATIVE); PH 5.5 (5.0-9.0); PROTEIN NEGATIVE (NEGATIVE); UROBILINOGEN 0.2 E.U./dl (0.2-1.0)
[2017-04-08 18:58] LABS: INTERNATIONAL NORM RATIO 1.1 (2.0-3.5)
[2017-04-08 19:11] LABS: BACTERIA TRACE
[2017-04-08 19:12] LABS: EPITHELIAL CELLS 0-2; URINE REFLEX COMMENT NO (NO); WBC 0-2 wbc/hpf (0-5)
[2017-04-08 21:58] VITALS: BP 109/45
[2017-04-08] MEDS ORDERED: LOPRESSOR25 MG PO (22:05)
[2017-04-08] MEDS ORDERED: SIMVASTATIN10 MG PO (22:06)
[2017-04-08] MEDS ORDERED: TORSEMIDE20 MG PO (22:09)
[2017-04-08] MEDS ORDERED: DULER200 INH (22:12)
[2017-04-09] VITALS: BP 105/46
[2017-04-09 04:25] LABS: BASO % 0.3 % (0.0-1.0); EOS # 0.1 10*3/uL (0.0-0.4); EOS % 1.7 % (1.0-4.0); HEMATOCRIT 31.5 % (37.0-47.0); HEMOGLOBIN 9.9 g/dl (12.0-16.0); IG # 0.1 10*3/uL (0.0-0.1); MEAN CELL VOLUME 92.9 fl (81.0-99.0); MEAN CORPUSCULAR HGB 29.2 pg (27.0-31.0); MEAN CORPUSCULAR HGB CONC 31.4 g/dl (33.0-37.0); MEAN PLATELET VOLUME 10.1 fl (9.6-12.3); MONO # 0.6 10*3/uL (0.1-1.0); NEUT # 4.2 10*3/uL (2.3-7.9); NEUT % 70.2 % (47.0-73.0); PLATELET COUNT AUTOMATED 210 10*3/uL (130-400); RED BLOOD COUNT 3.39 10*6/uL (4.10-5.10); RED CELL DISTRI WIDTH 17.6 % (0-14.5)
[2017-04-09 04:38] LABS: BUN 21 mg/dl (7-24); CARBON DIOXIDE 29 mmol/L (21-32); CHLORIDE 102 mmol/L (98-107); EST GLOM FILT AFRICAN AMERICAN > 60 ml/min; GLUCOSE 92 mg/dL (65-99); POTASSIUM 3.4 mmol/L (3.5-5.1); SODIUM 139 mmol/L (136-145)
[2017-04-09 04:42] LABS: FREE T4 1.73 ng/dl (0.76-1.46)
[2017-04-09 04:45] LABS: HEMOGLOBIN A1c 5.7 % (4.8-5.6)
[2017-04-09 04:48] LABS: THYROID STIM HORMONE (HS) 0.159 uIU/ml (0.358-4.75)
[2017-04-09 06:39] LABS: FOLIC ACID 7.89 ng/mL (>5.38)
[2017-04-09 08:00] VITALS: BP 114/61
[2017-04-09 16:00] VITALS: BP 100/52
[2017-04-09 20:00] VITALS: BP 94/55
[2017-04-10] VITALS: BP 99/60
[2017-04-10 06:06] LABS: BASO % 0.4 % (0.0-1.0); EOS # 0.1 10*3/uL (0.0-0.4); EOS % 1.2 % (1.0-4.0); HEMATOCRIT 31.6 % (37.0-47.0); IG # 0.1 10*3/uL (0.0-0.1); LYMPH # 0.8 10*3/uL (1.3-4.4); LYMPH % 11.2 % (27.0-41.0); MEAN CELL VOLUME 93.5 fl (81.0-99.0); MEAN CORPUSCULAR HGB 29.6 pg (27.0-31.0); MEAN CORPUSCULAR HGB CONC 31.6 g/dl (33.0-37.0); MEAN PLATELET VOLUME 9.8 fl (9.6-12.3); MONO # 0.7 10*3/uL (0.1-1.0); MONO % 10.2 % (3.0-9.0); NEUT # 5.1 10*3/uL (2.3-7.9); PLATELET COUNT AUTOMATED 217 10*3/uL (130-400); RED BLOOD COUNT 3.38 10*6/uL (4.10-5.10); RED CELL DISTRI WIDTH 17.8 % (0-14.5); WHITE BLOOD COUNT 6.7 10*3/uL (4.8-10.8)
[2017-04-10 06:23] LABS: BUN 18 mg/dl (7-24); CARBON DIOXIDE 31 mmol/L (21-32); CHLORIDE 102 mmol/L (98-107); EST GLOM FILT AFRICAN AMERICAN > 60 ml/min; GLUCOSE 113 mg/dL (65-99); POTASSIUM 3.6 mmol/L (3.5-5.1); SODIUM 140 mmol/L (136-145)
[2017-04-10 08:00] VITALS: BP 104/50
[2017-04-10 12:00] VITALS: BP 117/66
== END 2017-04-10 16:05 | disposition home or self-care (01) | DRG 291 ==
LOC: ED 17:45 → EDHOLD 20:39 → 5E 20:39
PROVIDERS: Family Medicine; Nurse Practitioner Family; Student in an Organized Health Care Education/Training Program
DX: I13.0 Hypertensive heart and chronic kidney disease with heart failure and stage 1 through stage 4 chronic kidney disease, or unspecified chronic kidney disease (principal); G93.40 Encephalopathy, unspecified; N17.0 Acute kidney failure with tubular necrosis; I50.32 Chronic diastolic (congestive) heart failure; E11.22 Type 2 diabetes mellitus with diabetic chronic kidney disease; G30.1 Alzheimer's disease with late onset; F02.80 Dementia in other diseases classified elsewhere, unspecified severity, without behavioral disturbance, psychotic disturbance, mood disturbance, and anxiety; I48.2 Chronic atrial fibrillation; I25.118 Atherosclerotic heart disease of native coronary artery with other forms of angina pectoris; N18.3 Chronic kidney disease, stage 3 (moderate); J44.9 Chronic obstructive pulmonary disease, unspecified; G20 Parkinson's disease; E55.9 Vitamin D deficiency, unspecified; E66.9 Obesity, unspecified; I25.10 Atherosclerotic heart disease of native coronary artery without angina pectoris; M10.9 Gout, unspecified; Z86.73 Personal history of transient ischemic attack (TIA), and cerebral infarction without residual deficits; I25.2 Old myocardial infarction; Z87.01 Personal history of pneumonia (recurrent); Z87.81 Personal history of (healed) traumatic fracture; Z90.49 Acquired absence of other specified parts of digestive tract; Z98.49 Cataract extraction status, unspecified eye; Z95.1 Presence of aortocoronary bypass graft; Z82.3 Family history of stroke; Z83.3 Family history of diabetes mellitus; Z79.84 Long term (current) use of oral hypoglycemic drugs; Z79.899 Other long term (current) drug therapy; Z68.25 Body mass index [BMI] 25.0-25.9, adult

== ENCOUNTER → 2017-04-13 | Outpatient (CLI) | payer MEDICARE ==
[~2017-04-13] MED LIST changes: +LOPRESSOR25 MG PO; +SIMVASTATIN10 MG PO; +TORSEMIDE20 MG PO
[2017-04-13 13:52] LABS: BASO % 0.7 % (0.0-1.0); EOS # 0.1 10*3/uL (0.0-0.4); HEMATOCRIT 31.5 % (37.0-47.0); HEMOGLOBIN 9.8 g/dl (12.0-16.0); LYMPH # 0.7 10*3/uL (1.3-4.4); LYMPH % 12.1 % (27.0-41.0); MEAN CELL VOLUME 93.5 fl (81.0-99.0); MEAN CORPUSCULAR HGB 29.1 pg (27.0-31.0); MEAN CORPUSCULAR HGB CONC 31.1 g/dl (33.0-37.0); MEAN PLATELET VOLUME 9.4 fl (9.6-12.3); MONO # 0.6 10*3/uL (0.1-1.0); NEUT # 4.6 10*3/uL (2.3-7.9); NEUT % 74.5 % (47.0-73.0); PLATELET COUNT AUTOMATED 208 10*3/uL (130-400); RED BLOOD COUNT 3.37 10*6/uL (4.10-5.10); RED CELL DISTRI WIDTH 17.5 % (0-14.5); WHITE BLOOD COUNT 6.1 10*3/uL (4.8-10.8)
[2017-04-13 14:08] LABS: HEMOGLOBIN A1c 5.8 % (4.8-5.6)
[2017-04-13 14:22] LABS: ALBUMIN 2.9 gm/dl (3.1-4.5); ALKALINE PHOSPHATASE 81 U/L (45-117); BILIRUBIN, TOTAL 0.3 mg/dl (0.2-1.0); BUN 19 mg/dl (7-24); CARBON DIOXIDE 28 mmol/L (21-32); CHLORIDE 100 mmol/L (98-107); CHOLESTEROL 153 mg/dL (<200); EST GLOM FILT AFRICAN AMERICAN > 60 ml/min; FREE T4 1.76 ng/dl (0.76-1.46); GLUCOSE 102 mg/dL (65-99); HDL CHOLESTEROL 42 mg/dl (40-60); LDL CHOLESTEROL 89 mg/dL (9-159); POTASSIUM 4.1 mmol/L (3.5-5.1); SGOT/AST 18 IU/L (3-35); SGPT/ALT 10 U/L (12-78); SODIUM 134 mmol/L (136-145); TOTAL PROTEIN 6.8 gm/dL (6.4-8.2); TRIGLYCERIDES 111 mg/dl (<150); VLDL CHOLESTEROL 22 mg/dL (6-40)
== END | disposition home or self-care (01) ==
LOC: LAB 13:31
PROVIDERS: Internal Medicine Cardiovascular Disease
DX: I50.22 Chronic systolic (congestive) heart failure (principal); E78.00 Pure hypercholesterolemia, unspecified; E03.4 Atrophy of thyroid (acquired); E11.29 Type 2 diabetes mellitus with other diabetic kidney complication

== ENCOUNTER 2017-04-20 16:06 | Inpatient (IN) | payer MEDICARE ==
[~2017-04-20] VITALS: Ht 160 cm; Wt 73.1 kg
[2017-04-20 16:10] VITALS: BP 108/47
--- NOTE | 2017-04-20 17:13 | NUR ---
DRINKING WATER, VISITING WITH FAMILY.
[2017-04-20 17:14] VITALS: BP 112/74
[2017-04-20 17:35] LABS: BASO % 0.5 % (0.0-1.0); EOS # 0.1 10*3/uL (0.0-0.4); EOS % 0.9 % (1.0-4.0); HEMATOCRIT 31.1 % (37.0-47.0); HEMOGLOBIN 9.8 g/dl (12.0-16.0); LYMPH # 0.5 10*3/uL (1.3-4.4); LYMPH % 8.6 % (27.0-41.0); MEAN CELL VOLUME 92.3 fl (81.0-99.0); MEAN CORPUSCULAR HGB 29.1 pg (27.0-31.0); MEAN CORPUSCULAR HGB CONC 31.5 g/dl (33.0-37.0); MEAN PLATELET VOLUME 9.5 fl (9.6-12.3); MONO # 0.4 10*3/uL (0.1-1.0); MONO % 7.2 % (3.0-9.0); NEUT # 4.6 10*3/uL (2.3-7.9); NEUT % 82.1 % (47.0-73.0); PLATELET COUNT AUTOMATED 264 10*3/uL (130-400); RED BLOOD COUNT 3.37 10*6/uL (4.10-5.10); RED CELL DISTRI WIDTH 17.2 % (0-14.5); WHITE BLOOD COUNT 5.6 10*3/uL (4.8-10.8)
[2017-04-20 17:45] LABS: INTERNATIONAL NORM RATIO 1.1 (2.0-3.5)
[2017-04-20 17:51] LABS: ALKALINE PHOSPHATASE 89 U/L (45-117); BUN 17 mg/dl (7-24); CHLORIDE 102 mmol/L (98-107); CPK 24 U/L (26-192); CREATININE 1.13 mg/dL (0.55-1.02); LDH 191 U/L (84-246); POTASSIUM 4.4 mmol/L (3.5-5.1); SGOT/AST 17 IU/L (3-35); SGPT/ALT 9 U/L (12-78); SODIUM 138 mmol/L (136-145); TOTAL PROTEIN 7.2 gm/dL (6.4-8.2)
[2017-04-20 17:52] LABS: CKMB 0.7 ng/ml (0.5-3.6)
[2017-04-20 17:53] LABS: TROPONIN I < 0.015 ng/ml (<0.045)
[2017-04-20 18:02] VITALS: BP 105/45
[2017-04-20 18:06] LABS: BILIRUBIN NEGATIVE (NEGATIVE); BLOOD NEGATIVE (NEGATIVE); CLARITY CLEAR (CLEAR); COLOR YELLOW (YELLOW); GLUCOSE NEGATIVE (NEGATIVE); KETONE NEGATIVE (NEGATIVE); LEUKO ESTERASE NEGATIVE (NEGATIVE); NITRITE NEGATIVE (NEGATIVE); SPECIFIC GRAVITY <= 1.005 (1.005-1.030); UROBILINOGEN 0.2 E.U./dl (0.2-1.0)
[2017-04-20 18:12] LABS: BACTERIA TRACE; RBC 0-2 rbc/hpf (0-2); WBC 0-2 wbc/hpf (0-5)
--- NOTE | 2017-04-20 19:04 | NUR ---
USED BED DONALDSON, VOIDED 500 CC
[2017-04-20 19:34] VITALS: BP 111/48
[2017-04-20 22:20] VITALS: BP 107/62
--- NOTE | 2017-04-20 22:20 | NUR ---
[facility] 82, admitted to , under the services of NORBERTO Baron DO with a diagnosis of ORTHOSTATIC HYPOTENSION AND SYNCOPE. Chief complaint is DIZZINESS. Patient arrived via ambulance from ER. Monitor applied. Initial assessment completed. Vital signs taken and recorded. NORBERTO BARON DO notified of admission to the unit. Orders received. See assessment for past medical history, medications and allergies. Patient and/or family oriented to unit. [facility]. Clothing/patient valuable form completed. ELIZABETH SIDHU
[2017-04-20] MEDS ORDERED: LEVOTHYROXINE150 MCG PO (23:10)
[2017-04-20] MEDS ORDERED: NORCO 5-325 TA1 EACH PO (23:11)
[2017-04-20] MEDS ORDERED: PROAIR HFA8.5 GM INH (23:12)
[2017-04-20] MEDS ORDERED: ALBUTEROL2.5 MG/0.5 INH (23:14)
--- NOTE | 2017-04-20 23:54 | NUR ---
DR. TRINH CALLED AT THIS TIME AND INFORMED OF SKIN TEAR TO LEFT ELBOW AND ALSO MED REC BEING COMPLETED. NO NEW ORDERS.
[2017-04-21] VITALS: BP 119/54
--- NOTE | 2017-04-21 06:16 | NUR ---
SPOKE WITH AARON AT DR. ESPANA'S ANSWERING SERVICE. INFORMATION FOR CONSULT GIVEN AT THIS TIME.
[2017-04-21 06:22] LABS: BASO % 0.6 % (0.0-1.0); EOS # 0.1 10*3/uL (0.0-0.4); EOS % 2.8 % (1.0-4.0); HEMATOCRIT 30.4 % (37.0-47.0); HEMOGLOBIN 9.5 g/dl (12.0-16.0); LYMPH # 0.9 10*3/uL (1.3-4.4); LYMPH % 18.3 % (27.0-41.0); MEAN CELL VOLUME 92.4 fl (81.0-99.0); MEAN CORPUSCULAR HGB 28.9 pg (27.0-31.0); MEAN CORPUSCULAR HGB CONC 31.3 g/dl (33.0-37.0); MONO # 0.6 10*3/uL (0.1-1.0); MONO % 10.8 % (3.0-9.0); NEUT # 3.4 10*3/uL (2.3-7.9); NEUT % 66.3 % (47.0-73.0); PLATELET COUNT AUTOMATED 266 10*3/uL (130-400); RED BLOOD COUNT 3.29 10*6/uL (4.10-5.10); RED CELL DISTRI WIDTH 17.2 % (0-14.5); WHITE BLOOD COUNT 5.1 10*3/uL (4.8-10.8)
[2017-04-21 06:42] LABS: ALBUMIN 2.9 gm/dl (3.1-4.5); BUN 15 mg/dl (7-24); CHLORIDE 101 mmol/L (98-107); CREATININE 0.87 mg/dL (0.55-1.02); SGOT/AST 19 IU/L (3-35); SGPT/ALT 8 U/L (12-78); TOTAL PROTEIN 6.7 gm/dL (6.4-8.2)
[2017-04-21 06:46] LABS: ALKALINE PHOSPHATASE 80 U/L (45-117)
[2017-04-21 07:19] LABS: POTASSIUM 3.3 mmol/L (3.5-5.1); SODIUM 139 mmol/L (136-145)
[2017-04-21 08:00] VITALS: BP 102/60
--- NOTE | 2017-04-21 08:00 | NUR ---
HOB ELEVATED, EASY RESPIRATIONS WITH SKIN W/D. REPOSITIONED FOR COMFORT & TO RELIEVE PRESSSURE AREAS. IVF PER ORDERS. SEE SHIFT ASSESSMENT.
--- NOTE | 2017-04-21 09:00 | NUR ---
Chaser Apprentice in to talk to patient. Patient states lives at home with family, 24 hour care. There are no steps in the home. Physician: riccardo Pharmacy: replaced by [facility] Home health services: replaced by [facility] Patient's level of ADLs: MODERATE ASSIST Patient has working utilities: all working DME: walkerm wheelchair, home oxygen Follow-up physician's appointment after d/c: will be made by hospitalist nurse director upon discharge Does patient want to access PORTAL?: no Discharge plan discussed with patient, patient will be going home with family, case mangaement will follow. KADEN GOFF
--- NOTE | 2017-04-21 10:03 | NUR ---
DR SHERMAN IN TO SEE PT.
--- NOTE | 2017-04-21 10:14 | NUR ---
DR SHERMAN NOTIFIED OF ORTHOSTATIC BP RESULTS.
--- NOTE | 2017-04-21 10:38 | NUR ---
DR MESSINA LITHARGE MILL OPERATOR, SPOKE WITH ARCHANA AT OFFICE REGARDING CONSULT.
--- NOTE | 2017-04-21 10:42 | NUR ---
OOB TO CHAIR, BODY ALARM FOR PT SAFETY. JUD NOTIFIED THAT PACER NEEDS INTERROGATED TODAY.
--- NOTE | 2017-04-21 11:28 | NUR ---
ATTEMPTED TO UPDATE MED REC WITH PHARMACY, PT DOES NOT GET ALL HER MEDS THRU THEM, SHE USES MAIL ORDER PER DTR CAROLINA. CAROLINA WILL BRING IN MED LIST. DR RILEY INFORMED.
[2017-04-21 12:00] VITALS: BP 105/50
--- NOTE | 2017-04-21 12:38 | NUR ---
ELIZABETH JUÁREZ [id number] Please refer to the physician's history and physical for past medical history, comorbid conditions, and allergies. Diagnosis: ORTHOSTATIC HYPOTENSION,SYNCOPE Nino Score: 14,MODERATE RISK WOUND DESCRIPTIONS: Location of the wound: left elbow Type of wound: skin tear Thickness: Partial Size: 0.6cm x 0.5cm x 0.1cm Tunneling: none Undermining: none Sinus Tract: none Presence of Exudate: seroanguineous Amount: Light Color: Red Odor: None Periwound Skin Appearance: Ecchymotic Wound edges: approximated Pain (associated with wound): none at time of assessment How does patient state this happened? pt stated she bumped the area. Staining noted to BLE. BLE dry and flaky. Patient states she follows with a vascular doctor. Bilateral heels are red and blanchable. Surface the patient is resting on: Isoflex SKIN PREVENTION RECOMMENDATION: 1. Pressure redistribution support surface as appropriate 2. Elevate heels 3. Remove boots/TEDS every shift and reapply 4. Head of bed 30 degrees as tolerated 5. Assess nutrition and hydration 6. Manage moisture 7. Avoid the use of containment devices while in bed 8. Use absorptive products on surfaces limit layers of linens on bed 9. Turn and reposition every 1-2 hours in bed and every 1 hour in chair as tolerated 10. Weight shifts every 15 minutes while up in chair 11. Offloading with pillows or device to keep heels elevated off bed 12. Monitor skin at least every shift 13. Inspect under medical devices twice a day WOUND TREATMENT RECOMMENDATIONS: Heel raiser pro boots to BLE. Skin tear guidelines to left elbow. Aqauphor to BLE. Spoke with Dr. Woodall regarding above recommendations.
[2017-04-21 16:00] VITALS: BP 103/57
[2017-04-21] MEDS ORDERED: ASPIRIN FOR CHI81 MG PO (16:38)
--- NOTE | 2017-04-21 16:40 | NUR ---
LATE ENTRY--MED REC UPDATED & COPY ON CHART.
--- NOTE | 2017-04-21 18:51 | NUR ---
DR MESSINA IN TO SEE PT.
--- NOTE | 2017-04-21 19:20 | NUR ---
PT. AWAKE, ORIENTED TO PERSON AND SELF. LUNG SOUNDS DIMINISHED, DENIES SOB. HEART SOUNDS IRREGULAR, EDEMA BLE +1 NON-PITTING, DENIES CHEST PAIN. DISCOLORATION BLE, DRY SKIN, HANDS AND FINGERS PURPLE/BLUE CHRONIC DISCOLORATION. CALL LIGHT WITHIN REACH, BED IN LOWEST POSITION, WHEELS LOCKED.
[2017-04-21 20:00] VITALS: BP 95/51
[2017-04-22] VITALS: BP 100/47
--- NOTE | 2017-04-22 | NUR ---
PT. EXPERIENCED CONFUSION, TRIED TO GET OUT OF BED. WAS STOPPED BEFORE OUT OF BED, AND REPOSITIONED IN BED WITH THE ALARM INTACT. ONE ON ONE WITH PT. TO REORIENT, AND TOLD TO USE CALL LIGHT. PT. VERBALIZED UNDERSTANDING OF TEACHING AT THIS TIME.
--- NOTE | 2017-04-22 00:01 | NUR ---
CHART CHECKED AT THIS TIME.
[2017-04-22 07:30] LABS: BASO % 0.6 % (0.0-1.0); EOS # 0.1 10*3/uL (0.0-0.4); EOS % 1.9 % (1.0-4.0); HEMATOCRIT 30.6 % (37.0-47.0); HEMOGLOBIN 9.6 g/dl (12.0-16.0); LYMPH # 0.7 10*3/uL (1.3-4.4); MEAN CELL VOLUME 93.9 fl (81.0-99.0); MEAN CORPUSCULAR HGB 29.4 pg (27.0-31.0); MEAN CORPUSCULAR HGB CONC 31.4 g/dl (33.0-37.0); MEAN PLATELET VOLUME 9.5 fl (9.6-12.3); MONO # 0.6 10*3/uL (0.1-1.0); MONO % 10.7 % (3.0-9.0); NEUT # 3.9 10*3/uL (2.3-7.9); NEUT % 73.2 % (47.0-73.0); PLATELET COUNT AUTOMATED 260 10*3/uL (130-400); RED BLOOD COUNT 3.26 10*6/uL (4.10-5.10); RED CELL DISTRI WIDTH 17.3 % (0-14.5); WHITE BLOOD COUNT 5.3 10*3/uL (4.8-10.8)
[2017-04-22 08:00] VITALS: BP 136/55
[2017-04-22 08:01] LABS: ALBUMIN 2.7 gm/dl (3.1-4.5); BUN 12 mg/dl (7-24); CHLORIDE 106 mmol/L (98-107); CREATININE 0.73 mg/dL (0.55-1.02); SGOT/AST 17 IU/L (3-35); SGPT/ALT 9 U/L (12-78); SODIUM 139 mmol/L (136-145); TOTAL PROTEIN 6.4 gm/dL (6.4-8.2)
--- NOTE | 2017-04-22 08:05 | NUR ---
MEDICATED WITH PRN PO TYLENOL FOR C/O HEADACHE.
[2017-04-22 08:09] LABS: ALKALINE PHOSPHATASE 76 U/L (45-117); FREE T4 1.59 ng/dl (0.76-1.46)
[2017-04-22 08:22] LABS: VITAMIN D, 25-HYDROXY 41.8 ng/mL (30-100)
[2017-04-22 08:28] LABS: THYROID STIM HORMONE (HS) 0.154 uIU/ml (0.358-4.75)
--- NOTE | 2017-04-22 09:30 | NUR ---
PRN PO TYLENOL EFFECTIVE, PER PATIENT.
[2017-04-22 12:00] VITALS: BP 105/63
--- NOTE | 2017-04-22 12:19 | NUR ---
Pretty, Nurse Practioner, indicated that Mrs. Sandoval will be discharged today. Faxed order to resume Home Health services and pertinent medical information to [facility].
--- NOTE | 2017-04-22 15:03 | NUR ---
PATIENT UP TO BSC, DYSPNEIC AND AXIOUS, HR UP TO 140'S SINUS TACHYCARDIA, FOLLOWED BY A PERIOD OF SVT IN 180'S, THEN BACK DOWN TO 110'S SINUS TACHYCARDIA WITH PVC'S WITH BACK TO BED AND RESTING. CONSUMER INSIGHT MANAGER YMAN IN TO SEE PATIENT FOR ASSESSMENT, DISCHARGE IS CANCELLED, PER CONSUMER INSIGHT MANAGER. BI ANALYST TO ARRANGE AMBULANCE SERVICE ON THE DAY PATIENT IS DISCHARGED AND FAMILY WOULD LIKE [facility] FOR SERVICE.
--- NOTE | 2017-04-22 15:52 | NUR ---
HEART RATE REMAINS 110'S AFIB, IRREGULAR WITH OCCASIONAL PACER SPIKES. ADMINISTERING LOPRESSOR 25MG PO AND DIGOXIN 250MCG PO ORDERED AT THIS TIME.
[2017-04-22 16:00] VITALS: BP 98/53
--- NOTE | 2017-04-22 19:30 | NUR ---
PT. ALERT AND ORIENTED TO PERSON AND PLACE. LUNG SOUNDS DIMINISHED BILATERALLY, PT. DENIES SOB, PT. ON 3L NC. NC FOUND OFF OF PT. WHEN ENTERING ROOM, NC PLACED BACK ON PT. @ 3L, PT. REMINDED TO LEAVE NC ON. EDEMA +1 NON-PITTING, PPP. DISCOLORATION TO BLE, AND HANDS. CALL LIGHT WITHIN REACH, BED IN LOWEST POSITION, WHEELS LOCKED.
[2017-04-22 20:00] VITALS: BP 114/65
--- NOTE | 2017-04-22 20:25 | NUR ---
CALLED INTO PT. ROOM BY PT. SHE WAS REQUESTING THAT WE CALL HER DAUGHTER CAROLINA. PT. WAS FOUND AGAIN WITH NC OFF, PT. C/O SOB. NC WAS PLACED BACK ON TO PT. @ 3L, SPO2 - 96 AT THIS TIME, PT. REMINDED TO KEEP NC ON. PT. WAS REASSESSED AND DENIED SOB PRIOR TO THIS NURSE LEAVING THE ROOM.
--- NOTE | 2017-04-22 20:50 | NUR ---
PA APPROACHED NURSES STATION SAYING THAT PT. WAS AGAIN REQUESTING THAT HER DAUGHTER BE CALLED, AND WOULD NOT LEAVE NC ON. NC REAPPLIED @ 3L, SPO2 - 100. DAUGHTER CAROLINA CALLED AT THIS TIME AND WAS INFORMED OF PT. REQUESTING HER, AND NOT LEAVING NC ON. PER CAROLINA, SHE WOULD ARRIVE SOON SHE PICKED UP HER SON FROM [employer].
--- NOTE | 2017-04-22 23:01 | NUR ---
BRICK BURNER CALLED AT THIS TIME D/T PT. HR BEING IN THE 180'S. PT. VERBALIZED CHEST PAIN AND SOB. AGAIN NC HAD BEEN REMOVED BY PT UPON REAPPLYING NC @ 3L, PT. REPORTED CHEST PAIN EASED, AND RESPIRATIONS WERE EASING. PO LOPRESSOR 50 MG GIVEN PER ORDERS. DAUGHTER AT BEDSIDE. SPO2 - 96.
--- NOTE | 2017-04-22 23:40 | NUR ---
PT. HR DOWN TO 130'S FOLLOWING PREVIOUS LOPRESSOR DOSE. PT. RESTING IN BED, EYES CLOSED, RESPIRATIONS EASY, NC @3L AT THIS TIME, DAUGHTER AT BEDSIDE.
[2017-04-23] VITALS: BP 121/78
--- NOTE | 2017-04-23 01:35 | NUR ---
PT. HR ON CM UP TO 160'S, UPON ENTERING THE ROOM PT. HAD AWAKENED, C/O SOB AND FEELING HOT, BELLY BREATHING, RESPIRATIONS RAPID WITH MOIST BREATH SOUNDS. DAUGHTER STATED THE PT. WOKE UP OUT OF NOWHERE FEELING VERY ANXIOUS. BP AT THIS TIME 140/100. SPO2 - 95 ON 4L NC. FINE CRACKLES AUSCULTATED ANTERIORLY, IV TURNED OFF AT THIS TIME. DR. NEWTON CALLED, INFORMED DR. NEWTON OF PATIENTS CONDITION, STATED HE WILL PUT IN ORDERS.
--- NOTE | 2017-04-23 01:40 | NUR ---
DR. NEWTON CALLED BACK AND ADVISED TO CALL CARDIOLOGY.
--- NOTE | 2017-04-23 01:41 | NUR ---
DR. MESSINA CALLED, DR. MESSINA INFORMED OF PATIENTS HR AND SOB. NEW STAT ORDERS RECEIVED FOR IV LASIX, AND ANOTHER DOSE OF LOPRESSOR 50MG PO.
--- NOTE | 2017-04-23 01:43 | NUR ---
TERRI AND ANJALI ADM. AT THIS TIME PER ORDERS. LAZAR CATHETER PLACED WITH IMMEDIATE RETURN OF 450ML ARCHANA COLORED URINE. DR. NEWTON IN THE ROOM AT THIS TIME, AGREES WITH CARDIOLOGY ORDERS.
--- NOTE | 2017-04-23 02:10 | NUR ---
PTS. COLOR RETURNING, PT. BREATHING EASIER AND DENYING SOB, HR RANGING FROM 90'S-110'S. LOVENOX 71MG ADM. PER ORDERS AT THIS TIME. DAUGHTER REMAINS AT BEDSIDE.
--- NOTE | 2017-04-23 05:39 | NUR ---
SPOKE WITH DR. NEWTON AT THIS TIME IN REGARDS TO CT AND PORTABLE CHEST RESULTS. NO NEW ORDERS AT THIS TIME.
--- NOTE | 2017-04-23 06:01 | NUR ---
PT. AROUSED EASILY FOR MORNING MEDICATIONS. DENIES SOB AT THIS TIME. HR - 80 PER CM. DAUGHTER AT BEDSIDE.
[2017-04-23 08:00] VITALS: BP 115/60
--- NOTE | 2017-04-23 08:10 | NUR ---
PT SLEEPING. RESPS REG/EASY WITH NO DISTRESS NOTED AT THIS TIME. BED LOW. CALL ROGERS IN REACH
--- NOTE | 2017-04-23 10:40 | NUR ---
PT AWAKE. EATING BREAKFAST. ROUTINE MEDS TOLERATED. NO COMPLAINTS AT THIS TIME. BED LOW. CALL ROGERS IN REACH
--- NOTE | 2017-04-23 11:18 | NUR ---
DR KUNZ IN TO SEE PT. PTS FLUIDS DISCONTINUED.
[2017-04-23 12:00] VITALS: BP 111/42
[2017-04-23 13:50] VITALS: BP 104/44
--- NOTE | 2017-04-23 13:50 | NUR ---
PT AWAKE AND VISITING WITH FAMILY AT THE BEDSIDE. ROUTINE MEDS TOLERATED. HELD PTS LOPRESSOR R/T LOW BP 104/44.
--- NOTE | 2017-04-23 15:02 | NUR ---
SPOKE TO DR MESSINA REGARDING PTS LOW BP. ORDER TO CHANGE CURRENT ORDER FOR LOPRESSOR TO 25 MG BID
[2017-04-23 16:00] VITALS: BP 116/52
[2017-04-23 20:00] VITALS: BP 107/68
--- NOTE | 2017-04-23 20:00 | NUR ---
ANXIOUS, CALLING OUT. 1:1 PROVIDED TO REORIENT PATIENT. RESPIRATIONS EASY. LUNGS DIMINISHED. PULSE OX 99% 3L HUMIDIFIED. LAZAR PATENT. TRACE BLE EDEMA, HEELS ELEVATED. CALL LIGHT WITHIN REACH. BED ALARM MAINTAINED FOR SAFETY
--- NOTE | 2017-04-23 21:00 | NUR ---
RESTING QUIETLY. NO DISTRESS NOTED. RESPIRATIONS EASY, O2 IN USE. CALL LIGHT WITHIN REACH. BED ALARM MAINTAINED
--- NOTE | 2017-04-23 22:00 | NUR ---
AGAIN CONFUSED, CALLING OUT. 1:1 AGAIN PROVIDED, PATIENT CALMED AND LESS CONFUSED.
[2017-04-24] VITALS: BP 125/56
--- NOTE | 2017-04-24 | NUR ---
SLEEPING. NO DISTRESS NOTED. RESPIRATIONS EASY. VSS. CALL LIGHT WITHIN REACH. BED ALARM MAINTAINED FOR SAFETY
--- NOTE | 2017-04-24 02:35 | NUR ---
SLEEPING. BED ALARM MAINTAINED
--- NOTE | 2017-04-24 04:30 | NUR ---
CONTINUES TO SLEEP. NO ACUTE DISTRESS NOTED. RESPIRATIONS EASY. CALL LIGHT WITHIN REACH. BED ALARM MAINTAINED FOR SAFETY
--- NOTE | 2017-04-24 06:12 | NUR ---
REQUESTED AND RECEIVED TYLENOL PER PRN ORDER FOR COMPLAINTS OF HEADACHE RATING A 5. CALL LIGHT WITHIN REACH. WILL MONITOR FOR EFFECTIVENESS
[2017-04-24 08:00] VITALS: BP 105/53
[2017-04-24 12:00] VITALS: BP 103/83
--- NOTE | 2017-04-24 14:26 | NUR ---
D/C PHOTOS TAKEN.DRESSING CHANGE COMPLETE PER PHYSICIAN ORDER.
[2017-04-24] MEDS ORDERED: SYNTHROID,LEV125 MCG PO (15:10)
[2017-04-24] MEDS ORDERED: VITAMIN D31000 UNI1 PO (15:10)
[2017-04-24] MEDS ORDERED: LANOXIN250 MCG PO (15:10)
[2017-04-24] MEDS ORDERED: LOPRESSOR25 MG PO (15:10)
--- NOTE | 2017-04-24 15:20 | NUR ---
REMOVED CATHETER WITHOUT DIFFICULTY. TOLERATED WELL. VOICES NO C/O. DAUGHTER AT BEDSIDE AWAITING D/C.
--- NOTE | 2017-04-24 16:22 | NUR ---
Discharge instructions reviewed with patient/family. Patient receptive and verbalizes understanding. Follow-up care arranged. Written instructions given to patient/family.TELEMETRY ACCOUNTED FOR AND HEPLOCK REMOVED. JOSÉ MIGUEL CALERO
--- NOTE | 2017-04-24 16:23 | NUR ---
D/C PHOTOS TAKEN. PT TOLERATED WELL.
== END 2017-04-24 16:19 | disposition home health service (06) | DRG 682 ==
LOC: ED 16:06 → 5E 20:46 → EDHOLD 20:46 → 5E 21:40
PROVIDERS: Family Medicine; Internal Medicine Hospice and Palliative Medicine; Physician Assistant; ADMIT Internal Medicine
DX: N17.0 Acute kidney failure with tubular necrosis (principal); E43 Unspecified severe protein-calorie malnutrition; I13.0 Hypertensive heart and chronic kidney disease with heart failure and stage 1 through stage 4 chronic kidney disease, or unspecified chronic kidney disease; R65.10 Systemic inflammatory response syndrome (SIRS) of non-infectious origin without acute organ dysfunction; I50.32 Chronic diastolic (congestive) heart failure; E11.22 Type 2 diabetes mellitus with diabetic chronic kidney disease; F02.81 Dementia in other diseases classified elsewhere, unspecified severity, with behavioral disturbance; I47.1 Supraventricular tachycardia; G30.1 Alzheimer's disease with late onset; I48.2 Chronic atrial fibrillation; I95.1 Orthostatic hypotension; G20 Parkinson's disease; I25.10 Atherosclerotic heart disease of native coronary artery without angina pectoris; E11.65 Type 2 diabetes mellitus with hyperglycemia; J44.9 Chronic obstructive pulmonary disease, unspecified; E55.9 Vitamin D deficiency, unspecified; D64.9 Anemia, unspecified; E87.6 Hypokalemia; D72.810 Lymphocytopenia; N18.3 Chronic kidney disease, stage 3 (moderate); E05.80 Other thyrotoxicosis without thyrotoxic crisis or storm; E03.9 Hypothyroidism, unspecified; R29.6 Repeated falls; T50.2X5A Adverse effect of carbonic-anhydrase inhibitors, benzothiadiazides and other diuretics, initial encounter; M10.9 Gout, unspecified; E66.9 Obesity, unspecified; E86.1 Hypovolemia; Z96.651 Presence of right artificial knee joint; T50.995A Adverse effect of other drugs, medicaments and biological substances, initial encounter; Z86.73 Personal history of transient ischemic attack (TIA), and cerebral infarction without residual deficits; Z95.1 Presence of aortocoronary bypass graft; Z99.81 Dependence on supplemental oxygen; Z68.27 Body mass index [BMI] 27.0-27.9, adult; Z87.01 Personal history of pneumonia (recurrent); Z90.49 Acquired absence of other specified parts of digestive tract; Z90.710 Acquired absence of both cervix and uterus; Z98.49 Cataract extraction status, unspecified eye; Z83.3 Family history of diabetes mellitus; Z82.3 Family history of stroke; I25.2 Old myocardial infarction; Z79.84 Long term (current) use of oral hypoglycemic drugs; Z79.899 Other long term (current) drug therapy; Y92.89 Other specified places as the place of occurrence of the external cause

== ENCOUNTER 2017-05-05 15:24 | Inpatient (IN) | payer MEDICARE ==
[2017-05-05] VITALS (7 sets, daily range): BP systolic 117–153; BP diastolic 42–57
[~2017-05-05] VITALS: Ht 160 cm; Wt 69.1 kg
[~2017-05-05 15:24] MED LIST changes: +ALBUTEROL2.5 MG/0.5 INH; +ASPIRIN FOR CHI81 MG PO; +LANOXIN250 MCG PO; +LEVOTHYROXINE150 MCG PO; +NORCO 5-325 TA1 EACH PO; +PROAIR HFA8.5 GM INH; +SYNTHROID,LEV125 MCG PO; +VITAMIN D31000 UNI1 PO
[2017-05-05 15:47] LABS: BASO % 0.4 % (0.0-1.0); EOS % 0.1 % (1.0-4.0); HEMATOCRIT 35.6 % (37.0-47.0); HEMOGLOBIN 10.9 g/dl (12.0-16.0); LYMPH # 0.7 10*3/uL (1.3-4.4); LYMPH % 6.7 % (27.0-41.0); MEAN CELL VOLUME 91.3 fl (81.0-99.0); MEAN CORPUSCULAR HGB 27.9 pg (27.0-31.0); MEAN CORPUSCULAR HGB CONC 30.6 g/dl (33.0-37.0); MEAN PLATELET VOLUME 9.9 fl (9.6-12.3); MONO # 1.3 10*3/uL (0.1-1.0); NEUT # 8.5 10*3/uL (2.3-7.9); NEUT % 80.2 % (47.0-73.0); PLATELET COUNT AUTOMATED 253 10*3/uL (130-400); RED CELL DISTRI WIDTH 16.3 % (0-14.5); WHITE BLOOD COUNT 10.5 10*3/uL (4.8-10.8)
[2017-05-05 16:04] LABS: ALBUMIN 2.8 gm/dl (3.1-4.5); ALKALINE PHOSPHATASE 82 U/L (45-117); BUN 13 mg/dl (7-24); CHLORIDE 100 mmol/L (98-107); CREATININE 0.91 mg/dL (0.55-1.02); POTASSIUM 4.5 mmol/L (3.5-5.1); SGOT/AST 19 IU/L (3-35); SGPT/ALT 8 U/L (12-78); SODIUM 135 mmol/L (136-145); TOTAL PROTEIN 6.8 gm/dL (6.4-8.2)
[2017-05-05 16:07] LABS: TROPONIN I 0.049 ng/ml (<0.045)
[2017-05-05 17:19] LABS: BILIRUBIN NEGATIVE (NEGATIVE); BLOOD 1+ (NEGATIVE); CLARITY SL CLOUDY (CLEAR); COLOR YELLOW (YELLOW); GLUCOSE NEGATIVE (NEGATIVE); KETONE NEGATIVE (NEGATIVE); LEUKO ESTERASE 2+ (NEGATIVE); NITRITE NEGATIVE (NEGATIVE); PH 5.5 (5.0-9.0); UROBILINOGEN 0.2 E.U./dl (0.2-1.0)
[2017-05-05 17:33] LABS: BACTERIA 2+; WBC TNTC wbc/hpf (0-5)
--- NOTE | 2017-05-05 20:18 | NUR ---
Time: 2017 A 82 year old FEMALE admitted to 5E under services of NORBERTO JOHNSON DO. Pt. arrived via ambulance from ER. Chief complaint: WEAKNESS. LEXX VERA
--- NOTE | 2017-05-05 20:30 | NUR ---
PT'S DAUGHTER IN TO VISIT. DAUGHTER REFUSING TO HAVE PHOTOS TAKEN OF BILATERAL ELBOW SKIN TEARS AT THIS TIME. PT UNABLE TO CONSENT D/T CONFUSION. BILATERAL HEELS MUSHY/RED IN COLOR. DR. TOMPKINS ON FLOOR TO SEE PT. NOTIFIED OF SKIN TEARS AND MUSHY HEELS. TO PUT WOUND CARE ORDERS IN AND ORDER HEEL PROTECTORS. SCABS NOTED TO RIGHT DURAND AND RIGHT ELBOW. MUCOUS MEMBRANES DRY. PT VERY [place]. PT VOICE VERY SOFT. PT OFFERED AND ACCEPTED GLASS OF WATER AND GLASS OF OJ. GENERAL WEAKNESS NOTED. ABLE TO HOLD CUP AND SWALLOW WITHOUT DIFF WELL TAKE MEDS WHOLE. CALL LIGHT IN REACH.
--- NOTE | 2017-05-05 23:20 | NUR ---
PT TOOK MEDS WHOLE WITHOUT DIFF. ABLE TO HOLD CUP OF WATER BY SELF. NO C/O PAIN VOICED. CALL LIGHT IN REACH.
[2017-05-06] VITALS: BP 115/50
--- NOTE | 2017-05-06 02:28 | NUR ---
PT AWAKE IN BED. FLUIDS OFFERED AND ACCEPTED. LIGHTS AND TV TURNED OFF TO PROMOTE SLEEP. CALL LIGHT IN REACH.
[2017-05-06 07:12] LABS: BASO # 0.1 10*3/uL (0.0-0.1); BASO % 0.5 % (0.0-1.0); EOS % 0.4 % (1.0-4.0); HEMATOCRIT 34.5 % (37.0-47.0); HEMOGLOBIN 10.8 g/dl (12.0-16.0); LYMPH # 0.7 10*3/uL (1.3-4.4); LYMPH % 6.3 % (27.0-41.0); MEAN CELL VOLUME 92.2 fl (81.0-99.0); MEAN CORPUSCULAR HGB 28.9 pg (27.0-31.0); MEAN CORPUSCULAR HGB CONC 31.3 g/dl (33.0-37.0); MEAN PLATELET VOLUME 10.3 fl (9.6-12.3); MONO # 1.3 10*3/uL (0.1-1.0); MONO % 12.2 % (3.0-9.0); NEUT # 8.7 10*3/uL (2.3-7.9); NEUT % 80.1 % (47.0-73.0); PLATELET COUNT AUTOMATED 255 10*3/uL (130-400); RED BLOOD COUNT 3.74 10*6/uL (4.10-5.10); RED CELL DISTRI WIDTH 16.4 % (0-14.5); WHITE BLOOD COUNT 10.9 10*3/uL (4.8-10.8)
[2017-05-06 07:35] LABS: ALBUMIN 2.9 gm/dl (3.1-4.5); ALKALINE PHOSPHATASE 93 U/L (45-117); BUN 13 mg/dl (7-24); CHLORIDE 101 mmol/L (98-107); CHOLESTEROL 134 mg/dL (<200); CREATININE 0.77 mg/dL (0.55-1.02); HDL CHOLESTEROL 34 mg/dl (40-60); LDL CHOLESTEROL 80 mg/dL (9-159); MAGNESIUM 1.8 mg/dL (1.5-2.1); POTASSIUM 4.3 mmol/L (3.5-5.1); SGOT/AST 18 IU/L (3-35); SGPT/ALT 9 U/L (12-78); SODIUM 138 mmol/L (136-145); TOTAL PROTEIN 7.4 gm/dL (6.4-8.2); TRIGLYCERIDES 100 mg/dl (<150); VLDL CHOLESTEROL 20 mg/dL (6-40)
[2017-05-06 07:36] LABS: ACT PARTIAL THROMBO TIME 24.2 SECONDS (20.8-31.5); INTERNATIONAL NORM RATIO 1.2 (2.0-3.5)
[2017-05-06 07:39] LABS: THYROID STIM HORMONE (HS) 0.095 uIU/ml (0.358-4.75)
[2017-05-06 07:41] LABS: VITAMIN D, 25-HYDROXY 43.7 ng/mL (30-100)
[2017-05-06 08:00] VITALS: BP 143/56
--- NOTE | 2017-05-06 08:33 | NUR ---
ELIZABETH JUÁREZ [id number] Please refer to the physician's history and physical for past medical history, comorbid conditions, and allergies. Diagnosis: UTI MALNUTRTION UNABLE TO AMBULATE DEHYDRATION Nino Score: , WOUND DESCRIPTIONS: Location of the wound: left elbow Type of wound: skin tear Thickness: Partial Size: 1.0cm x 1.0cm x 0.1cm Tunneling: none Undermining: none Sinus Tract: none Presence of Exudate: serosanguineous Amount: Light Color: Red Odor: None Periwound Skin Appearance: Normal Wound edges: approximated Pain (associated with wound): none at time of assessment How does patient state this happened? pt unsure how this happened. Location of the wound: right elbow Type of wound: skin tear Thickness: Partial Size: 1.8cm x 1.0cm x 0.1cm Tunneling: none Undermining: none Sinus Tract: none Presence of Exudate: serosanguineous Amount: Light Color: Red Odor: None Periwound Skin Appearance: Normal Wound edges: approximate Pain (associated with wound): none at time of assessment How does patient state this happened? pt unsure how this happened Surface the patient is resting on: Isoflex SKIN PREVENTION RECOMMENDATION: 1. Pressure redistribution support surface as appropriate 2. Elevate heels 3. Remove boots/TEDS every shift and reapply 4. Head of bed 30 degrees as tolerated 5. Assess nutrition and hydration 6. Manage moisture 7. Avoid the use of containment devices while in bed 8. Use absorptive products on surfaces limit layers of linens on bed 9. Turn and reposition every 1-2 hours in bed and every 1 hour in chair as tolerated 10. Weight shifts every 15 minutes while up in chair 11. Offloading with pillows or device to keep heels elevated off bed 12. Monitor skin at least every shift 13. Inspect under medical devices twice a day WOUND TREATMENT RECOMMENDATIONS: skin tear guideline for left and right elbow nss, sureprep, versatel, hydrogel cover with optifoam gentle.
--- NOTE | 2017-05-06 09:00 | NUR ---
Electrical Journeyman in to talk to patient. Patient states lives at home with . There are no steps in the home. Physician: ulises fernando Pharmacy: [facility] services: [facility] Patient's level of ADLs: MODERATE ASSIST Patient has working utilities: all working DME: walker, wheelchair,walker, home oxygen from company in [place] Follow-up physician's appointment after d/c: will be made by hospitalist nurse director upon discharge Does patient want to access PORTAL?: no Discharge plan discussed with patient, patient lives at home with ,they have 24 hour care set up by family, patient is somewhat confused at this time party planner will contact patient's daughter and discuss discharge plans. KADEN GOFF
[2017-05-06 12:00] VITALS: BP 145/58
--- NOTE | 2017-05-06 13:03 | NUR ---
PHYSICAL THERAPY PAtient repectfully declines PT evaluation this date. Thank you for this referral. Janie Garcia,PT
--- NOTE | 2017-05-06 15:18 | NUR ---
Patient pleasantly declined Occupational Therapy evaluation this date in a whisper voice. OTR will recheck at a later date. Marjorie Evans OTR/L
[2017-05-06 16:00] VITALS: BP 152/54
[2017-05-06 20:00] VITALS: BP 157/56
[2017-05-07] VITALS: BP 142/58
--- NOTE | 2017-05-07 00:27 | NUR ---
24 HR chart check completed.
[2017-05-07 07:13] LABS: BASO % 0.4 % (0.0-1.0); EOS % 0.2 % (1.0-4.0); HEMOGLOBIN 10.4 g/dl (12.0-16.0); LYMPH # 0.8 10*3/uL (1.3-4.4); LYMPH % 7.7 % (27.0-41.0); MEAN CELL VOLUME 93.4 fl (81.0-99.0); MEAN CORPUSCULAR HGB 28.6 pg (27.0-31.0); MEAN CORPUSCULAR HGB CONC 30.6 g/dl (33.0-37.0); MEAN PLATELET VOLUME 10.6 fl (9.6-12.3); MONO # 1.2 10*3/uL (0.1-1.0); MONO % 10.8 % (3.0-9.0); NEUT # 8.6 10*3/uL (2.3-7.9); NEUT % 80.2 % (47.0-73.0); PLATELET COUNT AUTOMATED 264 10*3/uL (130-400); RED BLOOD COUNT 3.64 10*6/uL (4.10-5.10); RED CELL DISTRI WIDTH 16.4 % (0-14.5); WHITE BLOOD COUNT 10.7 10*3/uL (4.8-10.8)
[2017-05-07 07:35] LABS: CHLORIDE 104 mmol/L (98-107); CREATININE 0.72 mg/dL (0.55-1.02); POTASSIUM 5.2 mmol/L (3.5-5.1); SODIUM 137 mmol/L (136-145)
[2017-05-07 07:49] LABS: BUN 13 mg/dl (7-24); DIGOXIN 1.99 ng/ml (0.8-2.0)
[2017-05-07 08:00] VITALS: BP 144/66
--- NOTE | 2017-05-07 10:00 | NUR ---
AM MEDS TAKEN. FAMILY AT THE BEDSIDE.
[2017-05-07 12:00] VITALS: BP 106/44
[2017-05-07 16:00] VITALS: BP 121/50
--- NOTE | 2017-05-07 16:44 | NUR ---
RESTING WITH NO DISTRESS.
[2017-05-07 20:00] VITALS: BP 132/50
--- NOTE | 2017-05-07 20:32 | NUR ---
Medicated with Tylenol po prn for elevated temperature. Will monitor effectiveness. Call light within reach.
[2017-05-08] VITALS: BP 127/53
--- NOTE | 2017-05-08 00:24 | NUR ---
24 HR chart check completed.
[2017-05-08 07:09] LABS: BUN 14 mg/dl (7-24); CHLORIDE 102 mmol/L (98-107); CREATININE 0.74 mg/dL (0.55-1.02); FREE T4 2.07 ng/dl (0.76-1.46); POTASSIUM 4.4 mmol/L (3.5-5.1); SODIUM 137 mmol/L (136-145)
[2017-05-08 08:00] VITALS: BP 139/64
--- NOTE | 2017-05-08 10:30 | NUR ---
AM MEDS TAKEN.
[2017-05-08 16:00] VITALS: BP 123/57
--- NOTE | 2017-05-08 18:21 | NUR ---
Patient resting quietly with no c/o discomfort. Respirations easy and regular. Vital signs stable. No overt distress. ERICK SAUNDERS
--- NOTE | 2017-05-08 19:32 | NUR ---
alert resting quietly watching tv. no acute distress noted. O2 2L NC in use. dry cough noted.
[2017-05-08 20:00] VITALS: BP 130/65
--- NOTE | 2017-05-08 22:17 | NUR ---
RESTING QUIETLY IN BED. HEAD ELEVATED. RESP. EASY AND REG.
[2017-05-09] VITALS: BP 121/48
--- NOTE | 2017-05-09 02:17 | NUR ---
INCONTINENT SMALL AMOUNT STOOL PERICARE DONE. PT. MOVED UP IN BED AND TURNED TO LEFT SIDE.
[2017-05-09 06:33] LABS: BASO % 0.4 % (0.0-1.0); EOS % 0.4 % (1.0-4.0); HEMOGLOBIN 9.2 g/dl (12.0-16.0); LYMPH # 0.8 10*3/uL (1.3-4.4); MEAN CELL VOLUME 90.9 fl (81.0-99.0); MEAN CORPUSCULAR HGB 28.8 pg (27.0-31.0); MEAN CORPUSCULAR HGB CONC 31.7 g/dl (33.0-37.0); MEAN PLATELET VOLUME 10.7 fl (9.6-12.3); MONO % 10.6 % (3.0-9.0); NEUT # 7.5 10*3/uL (2.3-7.9); NEUT % 79.5 % (47.0-73.0); PLATELET COUNT AUTOMATED 258 10*3/uL (130-400); RED BLOOD COUNT 3.19 10*6/uL (4.10-5.10); RED CELL DISTRI WIDTH 16.2 % (0-14.5); WHITE BLOOD COUNT 9.5 10*3/uL (4.8-10.8)
[2017-05-09 07:06] LABS: BUN 17 mg/dl (7-24); CHLORIDE 102 mmol/L (98-107); CREATININE 0.63 mg/dL (0.55-1.02); SODIUM 135 mmol/L (136-145)
[2017-05-09 08:00] VITALS: BP 136/80
--- NOTE | 2017-05-09 08:00 | NUR ---
RESTING QUIETLY NO C/O NO DISTRESS NOTED. HOB ELEVATED. SEE SHIFT ASSESSMENT.
--- NOTE | 2017-05-09 09:27 | NUR ---
PHYSICAL THERAPY Patient evaluated on 5, full evaluation to follow. Continue with PT as per plan of care with fall, max (A) x 2 and significant acute debility and 02 precautions. Will require extensive SNF for acute debility in order to return to home at [facility]. PAtient is high complexity via chart reviw, tests and evaluation: 42655. Thank you for this referral. ama Garcia,PT
--- NOTE | 2017-05-09 09:42 | NUR ---
Occupational Therapy evaluation completed on 5 this date with full eval to follow. Precautions include fall risk, o2 dep,IV UE, rigidity, debility, high complexity level 98611. Recommend OT per POC and SNF upon d/c to enable return home at [facility]. Thank you for this referral. Marjorie Evans OTR/l
[2017-05-09 12:00] VITALS: BP 119/60
[2017-05-09 16:00] VITALS: BP 138/46
--- NOTE | 2017-05-09 16:00 | NUR ---
RESTING QUIETLY NO C/O NO DISTRESS NOTED. SEE SHIFT ASSESSMENT.
--- NOTE | 2017-05-09 19:02 | NUR ---
MEDICATED PO TYLENOL FOR C/O LEG PAIN.
[2017-05-09 20:00] VITALS: BP 135/67
[2017-05-10] VITALS: BP 100/54
--- NOTE | 2017-05-10 04:00 | NUR ---
SLEEPING RESP EASY AND REG. NO ACUTE DISTRESS NOTED AT THIS TIME.
[2017-05-10 06:28] LABS: BASO % 0.5 % (0.0-1.0); EOS # 0.1 10*3/uL (0.0-0.4); EOS % 1.8 % (1.0-4.0); HEMATOCRIT 32.1 % (37.0-47.0); LYMPH # 0.8 10*3/uL (1.3-4.4); LYMPH % 9.8 % (27.0-41.0); MEAN CELL VOLUME 92.2 fl (81.0-99.0); MEAN CORPUSCULAR HGB 28.7 pg (27.0-31.0); MEAN CORPUSCULAR HGB CONC 31.2 g/dl (33.0-37.0); MEAN PLATELET VOLUME 10.7 fl (9.6-12.3); MONO # 0.8 10*3/uL (0.1-1.0); MONO % 9.8 % (3.0-9.0); NEUT % 77.1 % (47.0-73.0); PLATELET COUNT AUTOMATED 273 10*3/uL (130-400); RED BLOOD COUNT 3.48 10*6/uL (4.10-5.10); RED CELL DISTRI WIDTH 16.3 % (0-14.5); WHITE BLOOD COUNT 7.8 10*3/uL (4.8-10.8)
[2017-05-10 06:54] LABS: BUN 15 mg/dl (7-24); CHLORIDE 101 mmol/L (98-107); CREATININE 0.66 mg/dL (0.55-1.02); POTASSIUM 3.9 mmol/L (3.5-5.1); SODIUM 135 mmol/L (136-145)
[2017-05-10 08:00] VITALS: BP 125/60
--- NOTE | 2017-05-10 08:56 | NUR ---
PATIENT SITTING UP BED EATING BREAKFAST.TRAY SETUP BY PA. PATIENT BEING FED AT THIS TIME. TOLERATING WELL. PATIENT REMAINS PLEASANTLY CONFUSED. COOPERATIVE WITH CARE. WILL CONTINUE TO MONITOR. PT ACCEPTED [facility] WHOLE WITHOUT ANY DIFFICULTY. VSS. CALL LIGHT WITHIN REACH.
--- NOTE | 2017-05-10 11:19 | NUR ---
PHYSICAL THERAPY Patient seen this am 1:1 for therapy supine in bed with continuos O2-2L, IV treatment and presented with increased confusion. Patient required Max A x 2 for all transfers requiring v/c's to complete all therapy this session. Patient tolerated 15 minutes EOB sit CGA x 1 50% of time and SBA remaining 50% following v/c to improve seated upright posture. Patient unable to complete rocking forward or sideways secondary to increased confusion and returned to supine in bed, remaining with call light and bed alarm activated. Total treatment time 25 minutes and will cotinue per POC as tolerated. Maximo Aquino, CARRIER OPERATOR
--- NOTE | 2017-05-10 11:31 | NUR ---
Patients daughter called and asked patient be referred to [facility] as they feel the family is unable to care for her at home anymore. Contacted [facility] and faxed referral. Has completed the 3 night stay for Medicare requirements, waiting on acceptance.
[2017-05-10 12:00] VITALS: BP 110/62
[2017-05-10 16:00] VITALS: BP 125/49
[2017-05-10 20:00] VITALS: BP 129/67
[2017-05-11] VITALS: BP 130/82
--- NOTE | 2017-05-11 00:30 | NUR ---
24 HR chart check completed.
[2017-05-11 06:49] LABS: BASO % 0.5 % (0.0-1.0); EOS # 0.1 10*3/uL (0.0-0.4); EOS % 1.2 % (1.0-4.0); HEMATOCRIT 30.8 % (37.0-47.0); HEMOGLOBIN 9.6 g/dl (12.0-16.0); LYMPH # 0.8 10*3/uL (1.3-4.4); LYMPH % 8.9 % (27.0-41.0); MEAN CELL VOLUME 91.9 fl (81.0-99.0); MEAN CORPUSCULAR HGB 28.7 pg (27.0-31.0); MEAN CORPUSCULAR HGB CONC 31.2 g/dl (33.0-37.0); MEAN PLATELET VOLUME 10.3 fl (9.6-12.3); MONO % 11.6 % (3.0-9.0); NEUT # 6.5 10*3/uL (2.3-7.9); NEUT % 76.3 % (47.0-73.0); PLATELET COUNT AUTOMATED 281 10*3/uL (130-400); RED BLOOD COUNT 3.35 10*6/uL (4.10-5.10); RED CELL DISTRI WIDTH 16.2 % (0-14.5); WHITE BLOOD COUNT 8.5 10*3/uL (4.8-10.8)
[2017-05-11 06:55] LABS: BUN 14 mg/dl (7-24); CHLORIDE 100 mmol/L (98-107); CREATININE 0.56 mg/dL (0.55-1.02); SODIUM 133 mmol/L (136-145)
--- NOTE | 2017-05-11 07:53 | NUR ---
The [facility] has excepted this patient, PASS/RR completed online in hens system. Patient has met 3 night stay requirement and can go when medically stable for discharge.
[2017-05-11 08:00] VITALS: BP 124/74
--- NOTE | 2017-05-11 11:49 | NUR ---
PATIENT SEEN 1:1 15 MINUTES THIS DATE. PATIENT IDENTIFIED BY NAME AND DATE OF . PATIENT COMPLETED BED MOBILITY DEPENDENT USE BED RAIL SIDE TO SIDE. COMPLETED POSITIONING USE PILLOWS FOR INCREASE SKIN INTEGRITY. PATIENT REQUIRED CONF[employer]ERATED SALISH ASSIST GROOMING TASK IN BED. CONTNUE TOWARDS PLAN OF CARE. CALL LIGHT WITHIN REACH UPON LEAVING THIS DATE. SAMUEL OLMSTEAD
[2017-05-11 12:00] VITALS: BP 116/50
[2017-05-11] MEDS ORDERED: Synthroid,Lev100 MCG PO (13:06)
[2017-05-11] MEDS ORDERED: LANOXIN0.125 MG PO (13:06)
--- NOTE | 2017-05-11 13:11 | NUR ---
PHYSICAL THERAPY Sylvia was seen this PM 1:1 for her therapy session, Pt is very confused. Transfer suspine/sit MAX A X 1, up into sitting balance, sitting balance side of bad start off with MAX A X 1, into MOD A X 1, with much verbal cueing to lean forward and try to sit independent but could not. Pt getting up sit and wanting to lay back down and fighting treatment, treatment time 16 min. ELIZABETH PEREYRA COURTESY VAN DRIVER.
--- NOTE | 2017-05-11 13:40 | NUR ---
Patient being discharged to the [facility], transportation scheduled for 330 with [facility]. [place], nursing and family notified.
--- NOTE | 2017-05-11 14:54 | NUR ---
Photos taken of skin tears to bl elbows due to plan for DC today.
--- NOTE | 2017-05-11 15:44 | NUR ---
Spoke with Janell from Hospitalist. States that Dr. Maria wants pt have full bag of IVF infused prior to pt dc to [facility]. IVF are currently running at 80 cc/hr and there is 800 cc left in bag. Janell states Dr. Maria is currently putting in orders to run ivf at higher rate. I asked what rate and she said 200-250 as long as pt IV can tolerate. I increased IVF to 250 cc/hr. I also notified Ailyn in SS dept that picker tender would need postponed. I then called [facility] and notified them. They stated they would be here at 8 pm to picker tender pt.
[2017-05-11 16:00] VITALS: BP 102/78; BP 97/81
--- NOTE | 2017-05-11 17:50 | NUR ---
Spoke with pt daughter Janna at this time. States she is concerned regarding pt going to [place] so late in the evening and is worried this will cause pt to have increasing confusion. Requesting that be asked if pt could be discharged in Am instead of tonight to [facility] [place]. I notified her that I would speak with the Dr regarding her concern and get back with her. I did speak with Dr. Benton and he states that this has already been set up by social and political studies professor and pt would go tonight. Notified pt daughter of this who was disappointed but verbalized understanding.
--- NOTE | 2017-05-11 19:30 | NUR ---
PATIENT TRANSFERRED TO [facility] BY [facility]. Hep Lock discontinued. Site asymptomatic. Pressure applied. Sterile dressing applied. MONCHO TORRES
--- NOTE | 2017-05-11 19:43 | NUR ---
REPORT WAS CALLED TO [facility] PER AVTAR ORNELAS.
--- NOTE | 2017-05-12 07:57 | NUR ---
PHYSICAL THERAPY CO-SIGN I approve of the Phyical Therapy notes written above. ASHLEY VIDES PT
--- NOTE | 2017-05-12 14:11 | NUR ---
OCCUPATIONAL THERAPY CO-SIGN I approve of the Occupational Therapy notes written above. ANA BAZAN OTR/Honey
== END 2017-05-11 19:43 | disposition other institution (70) | DRG 689 ==
LOC: ED 15:24 → EDHOLD 18:29 → 5E 18:29
PROVIDERS: Emergency Medicine; Family Medicine; Hospitalist; Internal Medicine; ADMIT Internal Medicine
DX: N39.0 Urinary tract infection, site not specified (principal); G93.41 Metabolic encephalopathy; E44.0 Moderate protein-calorie malnutrition; I48.2 Chronic atrial fibrillation; G20 Parkinson's disease; E11.22 Type 2 diabetes mellitus with diabetic chronic kidney disease; I13.0 Hypertensive heart and chronic kidney disease with heart failure and stage 1 through stage 4 chronic kidney disease, or unspecified chronic kidney disease; I50.32 Chronic diastolic (congestive) heart failure; E87.1 Hypo-osmolality and hyponatremia; J43.9 Emphysema, unspecified; Z66 Do not resuscitate; Z51.5 Encounter for palliative care; R26.2 Difficulty in walking, not elsewhere classified; M10.9 Gout, unspecified; E03.9 Hypothyroidism, unspecified; D64.9 Anemia, unspecified; E87.5 Hyperkalemia; N18.3 Chronic kidney disease, stage 3 (moderate); I25.10 Atherosclerotic heart disease of native coronary artery without angina pectoris; E05.90 Thyrotoxicosis, unspecified without thyrotoxic crisis or storm; E55.9 Vitamin D deficiency, unspecified; F02.80 Dementia in other diseases classified elsewhere, unspecified severity, without behavioral disturbance, psychotic disturbance, mood disturbance, and anxiety; Z91.81 History of falling; Z86.73 Personal history of transient ischemic attack (TIA), and cerebral infarction without residual deficits; Z79.899 Other long term (current) drug therapy; I25.2 Old myocardial infarction; Z90.49 Acquired absence of other specified parts of digestive tract; Z90.710 Acquired absence of both cervix and uterus; Z95.1 Presence of aortocoronary bypass graft; Z82.3 Family history of stroke; Z83.3 Family history of diabetes mellitus; Z68.25 Body mass index [BMI] 25.0-25.9, adult; Z84.89 Family history of other specified conditions; Z79.82 Long term (current) use of aspirin; Z79.84 Long term (current) use of oral hypoglycemic drugs

== ENCOUNTER 2017-06-07 13:43 | Inpatient (IN) | payer MEDICARE ==
[~2017-06-07] VITALS: Ht 160 cm; Wt 58.7 kg
--- NOTE | ~2017-06-07 | PR ---
[place], [place] PROGRESS NOTE NAME: [facility] [id number] UNIT #: [id number] ROOM: 523 DOCTOR: OLIVE SINGLETON MD BIRTHDATE: [birth year] DOS: REQUESTING PHYSICIAN: Dr. Lara requesting family physician on record. SUBJECTIVE: The patient is lying completely flat in the recliner. She has had oxygen on. From the cardiology point of view, she denies any specific cardiac complaint, no chest pain, no chest pressure. She appears to be more alert than what Dr. Polo signed her out yesterday. OBJECTIVE: VITAL SIGNS: Blood pressure 94/48, heart rate 70, respiratory rate of 18, temperature 97.6. NECK: Good upstroke, no bruit. HEART: S1, S2 with holosystolic murmur in the left upper sternal border. LUNGS: Decreased air movement, but no mino wheezing or rales. EXTREMITIES: Lower extremities: There is no significant edema. LABORATORY DATA: White count 7.1, hemoglobin 10.5, potassium 4.2, creatinine , GFR more than 60%. ASSESSMENT AND PLAN: Current presentation with altered mental status and reported atypical chest pain. The patient appeared to be doing relatively well. Denies any specific cardiac complaint. Our plan at this time is to continue with current medical regimen. There is no room for titrate her medication. Her cardiac enzymes were negative x 3. No further cardiac testing at this time. Follow up with Dr. Polo upon discharge within 2-4 weeks. OLIVE SINGLETON MD CM:PNTRANS 1200 [id number] OLIVE SINGLETON MD 06/11/174 interface
[2017-06-07 13:43] VITALS: BP 138/65
[~2017-06-07 13:43] MED LIST changes: +Synthroid,Lev100 MCG PO
--- NOTE | 2017-06-07 14:15 | NUR ---
PATIENT IN ROOM IN NO DISTRESS. FREQUENT RE-CHECK OF PATIENT
--- NOTE | 2017-06-07 14:35 | NUR ---
SPOKE WITH NURSE FROM [facility] AT THIS TIME REY WHOM REPORTS THE PATIENT BECAME SHORT OF BREATH AFTER LAYING DOWN APPROXIMATELY 1 HOUR AFTER LUNCH AND HAD SEVERE DIAPHORESIS.
[2017-06-07 15:13] LABS: BASO % 0.4 % (0.0-1.0); EOS % 0.3 % (1.0-4.0); HEMATOCRIT 36.1 % (37.0-47.0); HEMOGLOBIN 11.2 g/dl (12.0-16.0); LYMPH # 0.5 10*3/uL (1.3-4.4); LYMPH % 4.7 % (27.0-41.0); MEAN CELL VOLUME 91.6 fl (81.0-99.0); MEAN CORPUSCULAR HGB 28.4 pg (27.0-31.0); MEAN PLATELET VOLUME 9.7 fl (9.6-12.3); MONO # 0.9 10*3/uL (0.1-1.0); MONO % 8.2 % (3.0-9.0); NEUT # 9.4 10*3/uL (2.3-7.9); NEUT % 85.8 % (47.0-73.0); PLATELET COUNT AUTOMATED 379 10*3/uL (130-400); RED BLOOD COUNT 3.94 10*6/uL (4.10-5.10); RED CELL DISTRI WIDTH 16.6 % (0-14.5); WHITE BLOOD COUNT 10.9 10*3/uL (4.8-10.8)
[2017-06-07 15:22] LABS: ACT PARTIAL THROMBO TIME 29.9 SECONDS (20.8-31.5); INTERNATIONAL NORM RATIO 1.2 (2.0-3.5)
[2017-06-07 15:28] LABS: ALBUMIN 2.7 gm/dl (3.1-4.5); ALKALINE PHOSPHATASE 122 U/L (45-117); BUN 9 mg/dl (7-24); CHLORIDE 97 mmol/L (98-107); POTASSIUM 5.2 mmol/L (3.5-5.1); SGOT/AST 31 IU/L (3-35); SGPT/ALT 10 U/L (12-78); SODIUM 129 mmol/L (136-145); TOTAL PROTEIN 7.4 gm/dL (6.4-8.2)
--- NOTE | 2017-06-07 15:42 | NUR ---
FAMILY AT BEDSIDE.
--- NOTE | 2017-06-07 16:15 | NUR ---
PATIENT INCONTINENT OF STOOLS. PATIENT SKIN CARE PROVIDED.
--- NOTE | 2017-06-07 16:30 | NUR ---
THE PATIENT HAS NOTED SKIN TEAR TO LEFT MIDDLE ARM, LEFT LOWER LEG/DURAND. THERE IS NOTABLE REDNESS TO HEELS AND ELBOWS BILATERALLY AND REDNESS/HEALING WOUND TO COCCYX AREA. ADDITIONALLY NOTED ARE SMALL CUTS/SCRAPES TO PERINEAL AREA/BUTOCKS APPARENT TO LINES FROM TIGHT DIAPER PLACEMENT/RUBBING.
[2017-06-07 16:43] LABS: BILIRUBIN NEGATIVE (NEGATIVE); BLOOD NEGATIVE (NEGATIVE); CLARITY CLEAR (CLEAR); COLOR YELLOW (YELLOW); GLUCOSE NEGATIVE (NEGATIVE); KETONE NEGATIVE (NEGATIVE); LEUKO ESTERASE NEGATIVE (NEGATIVE); NITRITE NEGATIVE (NEGATIVE); SPECIFIC GRAVITY <= 1.005 (1.005-1.030); UROBILINOGEN 0.2 E.U./dl (0.2-1.0)
[2017-06-07 16:49] VITALS: BP 134/65
[2017-06-07 17:10] LABS: RBC 0-2 rbc/hpf (0-2)
[2017-06-07 17:11] LABS: BACTERIA 2+; HYALINE CAST 16-20
[2017-06-07 18:19] VITALS: BP 130/62
[2017-06-07 18:45] VITALS: BP 134/65
--- NOTE | 2017-06-07 18:45 | NUR ---
A 82 YO FEMALE, admitted to , under the services of ANGELITO Maloney DO with a diagnosis of CHF/SEPSIS/PNEUMONITIS. Chief complaint is SHORTNESS OF BREATH AND DIAPHORESIS AT THE ASSISTED EARLIER TODAY. Patient arrived via stretcher from ER. Monitor applied. Initial assessment completed. Vital signs taken and recorded. ANGELITO MALONEY DO notified of admission to the unit. Orders received. See assessment for past medical history, medications and allergies. Patient and/or family oriented to unit. [facility]. Clothing/patient valuable form completed. MICHAEL CUTLER
[2017-06-07 20:00] VITALS: BP 117/62
--- NOTE | 2017-06-07 20:09 | NUR ---
NOTIFIED OF CRITICAL LACTIC ACID OF 2.8, DOWN FROM 3.0. ALSO AWARE THAT HR HAS BEEN SITTING IN 120S. NO NEW ORDERS RECEIVED AT THIS TIME.
[2017-06-07] MEDS ORDERED: ELIQUIS2.5 M1 PO (20:15)
[2017-06-07] MEDS ORDERED: LASIX20 MG PO (20:16)
--- NOTE | 2017-06-07 20:21 | NUR ---
YOVANNY FROM [facility] CALLED AT THIS TIME. UPDATED ON PATIENT'S STATUS.
[2017-06-07] MEDS ORDERED: ACETAMINOPHEN325 M2 PO (20:26)
--- NOTE | 2017-06-07 20:27 | NUR ---
HOME MED REC UP TO DATE PER CUSTODIAL DOCUMENTATION.
--- NOTE | 2017-06-07 22:05 | NUR ---
AWARE THAT MED REC UP TO DATE.
[2017-06-08] VITALS: BP 122/64
--- NOTE | 2017-06-08 04:00 | NUR ---
PATIENT ASLEEP IN BED AT THIS TIME. RESPIRATIONS EASY, NO S/S OF DISTRESS NOTED. WILL MONITOR.
[2017-06-08 06:21] LABS: ALBUMIN 2.6 gm/dl (3.1-4.5); BUN 9 mg/dl (7-24); CHLORIDE 95 mmol/L (98-107); MAGNESIUM 1.5 mg/dL (1.5-2.1); SGOT/AST 17 IU/L (3-35); SODIUM 133 mmol/L (136-145)
[2017-06-08 06:22] LABS: BASO % 0.6 % (0.0-1.0); EOS # 0.1 10*3/uL (0.0-0.4); EOS % 1.4 % (1.0-4.0); HEMATOCRIT 31.4 % (37.0-47.0); LYMPH # 1.1 10*3/uL (1.3-4.4); LYMPH % 16.8 % (27.0-41.0); MEAN CORPUSCULAR HGB 28.1 pg (27.0-31.0); MEAN CORPUSCULAR HGB CONC 31.8 g/dl (33.0-37.0); MEAN PLATELET VOLUME 9.7 fl (9.6-12.3); MONO # 0.7 10*3/uL (0.1-1.0); MONO % 11.4 % (3.0-9.0); NEUT # 4.4 10*3/uL (2.3-7.9); NEUT % 69.2 % (47.0-73.0); PLATELET COUNT AUTOMATED 368 10*3/uL (130-400); RED BLOOD COUNT 3.56 10*6/uL (4.10-5.10); RED CELL DISTRI WIDTH 16.5 % (0-14.5); WHITE BLOOD COUNT 6.3 10*3/uL (4.8-10.8)
[2017-06-08 06:25] LABS: MEAN CELL VOLUME 88.2 fl (81.0-99.0)
[2017-06-08 06:26] LABS: ALKALINE PHOSPHATASE 106 U/L (45-117); CREATININE 0.55 mg/dL (0.55-1.02); PHOSPHOROUS 2.5 mg/dL (2.5-4.9); SGPT/ALT 7 U/L (12-78); TOTAL PROTEIN 6.6 gm/dL (6.4-8.2)
[2017-06-08 06:28] LABS: POTASSIUM 3.2 mmol/L (3.5-5.1)
--- NOTE | 2017-06-08 07:49 | NUR ---
patient comes from [facility] and is ok to return with updates when stable for discharge.
[2017-06-08 08:00] VITALS: BP 101/41
[2017-06-08 11:37] VITALS: BP 108/70
--- NOTE | 2017-06-08 11:45 | NUR ---
ELIZABETH JUÁREZ [id number] Please refer to the physician's history and physical for past medical history, comorbid conditions, and allergies. Diagnosis: ACUTE ON CHRONIC DIASTOLIC CHF Nino Score: 10,VERY HIGH RISK WOUND DESCRIPTIONS: Location of the wound: LLE top Type of wound: skin tear Thickness: Full Size: 1.0cm x 0.5cm x 0.1cm Tunneling: none Undermining: none Sinus Tract: none Presence of Exudate: serosanguineous Amount: Light Color: Yellow Odor: None Periwound Skin Appearance: Normal Wound edges: approximated Pain (associated with wound): none at time of assessment How does patient state this happened? pt unable to state how this happened Location of the wound: LLE bottom Type of wound: skin tear Thickness: Partial Size: 1.0cm x 0.5cm x 0.1cm Tunneling: none Undermining: none Sinus Tract: none Presence of Exudate: serosanguineous Amount: Light Color: Red Odor: None Periwound Skin Appearance: Normal Wound edges: approximated Pain (associated with wound): none at time of assessment How does patient state this happened? pt unable to state how this happened Surface the patient is resting on: Position Pro Patient's coccyx and heels are red and blanchable. SKIN PREVENTION RECOMMENDATION: 1. Pressure redistribution support surface as appropriate 2. Elevate heels 3. Remove boots/TEDS every shift and reapply 4. Head of bed 30 degrees as tolerated 5. Assess nutrition and hydration 6. Manage moisture 7. Avoid the use of containment devices while in bed 8. Use absorptive products on surfaces limit layers of linens on bed 9. Turn and reposition every 1-2 hours in bed and every 1 hour in chair as tolerated 10. Weight shifts every 15 minutes while up in chair 11. Offloading with pillows or device to keep heels elevated off bed 12. Monitor skin at least every shift 13. Inspect under medical devices twice a day WOUND TREATMENT RECOMMENDATIONS: Heel raiser pro boots bilaterally while in bed. Wheelchair cushion while OOB. Hydraguard to coccyx BID and prn for soiling. Cleanse LLE top and bottom wounds with NSS and apply sureprep to surrounding wound and cover with therahoney and cover with optifoam gentle.
--- NOTE | 2017-06-08 11:58 | NUR ---
MEDICATED WITH PRN PO TYLENOL FOR C/O HEADACHE.
[2017-06-08 12:00] VITALS: BP 100/50
--- NOTE | 2017-06-08 13:00 | NUR ---
PRN PO TYLENOL EFFECTIVE, PER PATIENT.
[2017-06-08 16:00] VITALS: BP 107/72
--- NOTE | 2017-06-08 18:34 | NUR ---
MEDICATED WITH PRN PO TYLENOL FOR HEADACHE.
[2017-06-08 19:51] VITALS: BP 93/54
[2017-06-09] VITALS: BP 108/52
--- NOTE | 2017-06-09 01:47 | NUR ---
24 HR chart check completed.
[2017-06-09 07:18] LABS: ALBUMIN 2.7 gm/dl (3.1-4.5); ALKALINE PHOSPHATASE 110 U/L (45-117); BUN 7 mg/dl (7-24); CHLORIDE 96 mmol/L (98-107); CREATININE 0.73 mg/dL (0.55-1.02); SGOT/AST 29 IU/L (3-35); SGPT/ALT 9 U/L (12-78); SODIUM 133 mmol/L (136-145); TOTAL PROTEIN 7.1 gm/dL (6.4-8.2)
[2017-06-09 07:20] LABS: POTASSIUM 4.7 mmol/L (3.5-5.1)
[2017-06-09 07:44] LABS: BASO % 0.7 % (0.0-1.0); EOS # 0.1 10*3/uL (0.0-0.4); HEMATOCRIT 34.3 % (37.0-47.0); HEMOGLOBIN 10.6 g/dl (12.0-16.0); LYMPH # 0.6 10*3/uL (1.3-4.4); LYMPH % 9.9 % (27.0-41.0); MEAN CELL VOLUME 89.8 fl (81.0-99.0); MEAN CORPUSCULAR HGB 27.7 pg (27.0-31.0); MEAN CORPUSCULAR HGB CONC 30.9 g/dl (33.0-37.0); MEAN PLATELET VOLUME 9.4 fl (9.6-12.3); MONO # 0.6 10*3/uL (0.1-1.0); MONO % 9.4 % (3.0-9.0); NEUT # 4.7 10*3/uL (2.3-7.9); NEUT % 78.2 % (47.0-73.0); PLATELET COUNT AUTOMATED 392 10*3/uL (130-400); RED BLOOD COUNT 3.82 10*6/uL (4.10-5.10); RED CELL DISTRI WIDTH 16.6 % (0-14.5)
[2017-06-09 08:00] VITALS: BP 110/64
--- NOTE | 2017-06-09 11:16 | NUR ---
PT C/O NAUSEA, AND BILATERAL HIP PAIN RATING 5/10. PRN ZOFRAN AND NORCO GIVEN PER ORDER
[2017-06-09 12:00] VITALS: BP 100/42
[2017-06-09 16:00] VITALS: BP 119/47
--- NOTE | 2017-06-09 16:30 | NUR ---
DR BARTLETT HERE TO SEE PT
[2017-06-09 20:00] VITALS: BP 103/57
[2017-06-10] VITALS: BP 90/70
[2017-06-10 04:00] VITALS: BP 99/47
[2017-06-10 07:20] LABS: BASO # 0.1 10*3/uL (0.0-0.1); BASO % 0.6 % (0.0-1.0); EOS # 0.1 10*3/uL (0.0-0.4); EOS % 0.7 % (1.0-4.0); HEMATOCRIT 34.1 % (37.0-47.0); HEMOGLOBIN 10.6 g/dl (12.0-16.0); LYMPH # 0.7 10*3/uL (1.3-4.4); LYMPH % 8.5 % (27.0-41.0); MEAN CELL VOLUME 90.5 fl (81.0-99.0); MEAN CORPUSCULAR HGB 28.1 pg (27.0-31.0); MEAN CORPUSCULAR HGB CONC 31.1 g/dl (33.0-37.0); MEAN PLATELET VOLUME 9.3 fl (9.6-12.3); MONO # 0.6 10*3/uL (0.1-1.0); MONO % 6.5 % (3.0-9.0); NEUT # 7.1 10*3/uL (2.3-7.9); NEUT % 83.2 % (47.0-73.0); PLATELET COUNT AUTOMATED 390 10*3/uL (130-400); RED BLOOD COUNT 3.77 10*6/uL (4.10-5.10); RED CELL DISTRI WIDTH 16.6 % (0-14.5); WHITE BLOOD COUNT 8.5 10*3/uL (4.8-10.8)
[2017-06-10 07:32] LABS: ALBUMIN 2.7 gm/dl (3.1-4.5); ALKALINE PHOSPHATASE 106 U/L (45-117); BUN 8 mg/dl (7-24); CHLORIDE 97 mmol/L (98-107); CREATININE 0.76 mg/dL (0.55-1.02); POTASSIUM 4.6 mmol/L (3.5-5.1); SGOT/AST 24 IU/L (3-35); SGPT/ALT 11 U/L (12-78); SODIUM 134 mmol/L (136-145); TOTAL PROTEIN 6.8 gm/dL (6.4-8.2)
[2017-06-10 08:00] VITALS: BP 102/54
[2017-06-10 12:00] VITALS: BP 113/54
--- NOTE | 2017-06-10 12:37 | NUR ---
Faxed patient information to [facility] for review.
--- NOTE | 2017-06-10 13:56 | NUR ---
patient is from the [facility] and can return when medically stable for discharge.
[2017-06-10 16:00] VITALS: BP 104/64
[2017-06-10 20:00] VITALS: BP 112/60
[2017-06-11] VITALS: BP 100/46
--- NOTE | 2017-06-11 05:00 | NUR ---
PATIENT MEDICATED WITH NORCO AT 1954 FOR COMPLAINTS OF A HEADACHE WITH EFFECTIVE RESULTS NOTED. RESTING IN BED WITH EYES CLOSED AT THIS TIME. AROUSES EASILY TO VERBAL STIMULI. NO SIGNS OR SYMPTOMS OF DISTRESS NOTED. WILL CONTINUE TO MONITOR. CALL LIGHT IN REACH.
[2017-06-11 06:43] LABS: BASO % 0.6 % (0.0-1.0); EOS # 0.1 10*3/uL (0.0-0.4); EOS % 1.5 % (1.0-4.0); HEMATOCRIT 33.4 % (37.0-47.0); HEMOGLOBIN 10.5 g/dl (12.0-16.0); LYMPH # 0.8 10*3/uL (1.3-4.4); LYMPH % 11.4 % (27.0-41.0); MEAN CELL VOLUME 90.3 fl (81.0-99.0); MEAN CORPUSCULAR HGB 28.4 pg (27.0-31.0); MEAN CORPUSCULAR HGB CONC 31.4 g/dl (33.0-37.0); MEAN PLATELET VOLUME 9.5 fl (9.6-12.3); MONO # 0.5 10*3/uL (0.1-1.0); MONO % 7.5 % (3.0-9.0); NEUT # 5.6 10*3/uL (2.3-7.9); NEUT % 78.4 % (47.0-73.0); PLATELET COUNT AUTOMATED 369 10*3/uL (130-400); RED CELL DISTRI WIDTH 16.6 % (0-14.5); WHITE BLOOD COUNT 7.1 10*3/uL (4.8-10.8)
[2017-06-11 07:09] LABS: ALBUMIN 2.6 gm/dl (3.1-4.5); ALKALINE PHOSPHATASE 102 U/L (45-117); BUN 11 mg/dl (7-24); CHLORIDE 96 mmol/L (98-107); CREATININE 0.78 mg/dL (0.55-1.02); POTASSIUM 4.2 mmol/L (3.5-5.1); SGOT/AST 20 IU/L (3-35); SGPT/ALT 9 U/L (12-78); SODIUM 132 mmol/L (136-145); TOTAL PROTEIN 6.5 gm/dL (6.4-8.2)
[2017-06-11 08:00] VITALS: BP 94/48
--- NOTE | 2017-06-11 09:57 | NUR ---
Shift chart check completed.
[2017-06-11 12:00] VITALS: BP 118/42
[2017-06-11 16:00] VITALS: BP 105/48
[2017-06-11 20:00] VITALS: BP 96/56
[2017-06-12] VITALS: BP 90/41
[2017-06-12 04:00] VITALS: BP 92/54
--- NOTE | 2017-06-12 06:25 | NUR ---
PT HAD NO OUTPUT THROUGHOUT SHIFT. BLADDER SCANNED FOR 644MLS. DR TOMPKINS NOTIFIED AND NEW ORDER TO ST CATH Q SHIFT.
[2017-06-12 06:44] LABS: BUN 16 mg/dl (7-24); CHLORIDE 97 mmol/L (98-107); CREATININE 0.74 mg/dL (0.55-1.02); POTASSIUM 3.9 mmol/L (3.5-5.1); SODIUM 133 mmol/L (136-145)
--- NOTE | 2017-06-12 06:45 | NUR ---
PT ST CATHED ORDERED FOR 700CC OF ARCHANA URINE WITH SEDIMENT.
[2017-06-12 08:00] VITALS: BP 108/44
--- NOTE | 2017-06-12 08:00 | NUR ---
RESTING QUIETLY IN BED, NO DISTRESS NOTED. PLEASANT AND COOPERATIVE. SEE SHIFT ASSESSMENT.
[2017-06-12] MEDS ORDERED: METOPROLOL TAR100 M1 PO (10:59)
[2017-06-12] MEDS ORDERED: ALDACTONE25 MG PO (10:59)
[2017-06-12 12:00] VITALS: BP 102/40
[2017-06-12 16:00] VITALS: BP 90/50
--- NOTE | 2017-06-12 16:30 | NUR ---
BLADDER SCAN DONE. 554 CC OF URINE IN BLADDER. STRAIGHT CATHED AND OBTAINED 600CC OF CLEAR ARCHANA URINE.
[2017-06-12 20:00] VITALS: BP 109/49
[2017-06-13] VITALS: BP 122/53
[2017-06-13 08:00] VITALS: BP 110/60
[2017-06-13 09:30] VITALS: BP 120/70
--- NOTE | 2017-06-13 10:00 | NUR ---
AM MEDS TAKEN.
--- NOTE | 2017-06-13 10:43 | NUR ---
Discussed with patients daughter that patient is not to return to the [place] [facility] [place], they would like her to go to [facility] [place] in [facility]. Contacted this facility and faxing information. waiting on acceptance.
--- NOTE | 2017-06-13 11:36 | NUR ---
PHYSICAL THERAPY PAtient evaliuated on 5, full evaluation to follow. Continue with PT as per plan of care with fall, max (A) x 2 and significant acute debility precauitions. Prone to skin tears and 02 as well. PAtient is high complexity via tests, chart review and evaluation: 26420. Rerquires SNF for impaired mobility. Thank you for this referral. Janie Garcia,PT
[2017-06-13 12:00] VITALS: BP 100/40
--- NOTE | 2017-06-13 12:58 | NUR ---
PHYSICAL THERAPY Sylvia seen this PM and was up in her bedside chair wanting to go back to bed. Pt having significant acute debility precautions and neednig much verbal cueing. Transfer sit/stand and up on the count of three with MAX A X 2, verbal cues to try and stand tall, followed by pivot back sitting at bedside MAX A X 2, then back supine MAX A. Pt with bed alarm on and call light. Went over Ex to bilateral LE with much cueing act assist X 10 and just could not and would not do any more. I told Sylvia that i would be back tomorrow. ELIZABETH PEREYRA SURVEY RESEARCH MANAGER.
--- NOTE | 2017-06-13 14:03 | NUR ---
Patient accepted to [facility]. Contacted Dr. Rust and asked if discharge from yesterday was still good and she said yes. Set patient up for 5PM with [facility]. NH, nursing and family notified.
--- NOTE | 2017-06-13 14:14 | NUR ---
Family called and stated they do not want [facility] transporting this patient, they called [place] and spoke to them directly. [facility] will be transporting this patient to [place] at 4PM. NH, nursing and family notified.
--- NOTE | 2017-06-13 15:53 | NUR ---
PATIENT STRAIGHT CATHED FOR 600 CC OF URINE. POST RISIDULA BLADDER SCAN FOR 15 CC OF URINE.
--- NOTE | 2017-06-13 16:15 | NUR ---
NURSE TO NURSE REPORT GIVEN TO AURA AT [facility].
--- NOTE | 2017-06-13 16:24 | NUR ---
PATIENT DISCHARGED TO [facility]. PAPERWORK AND BELONGINGS SENT WITH PATIENT.
--- NOTE | 2017-06-14 07:47 | NUR ---
PHYSICAL THERAPY CO-SIGN I approve of the Phyical Therapy notes written above. ASHLEY VIDES PT
== END 2017-06-13 16:24 | disposition other institution (70) | DRG 871 ==
LOC: ED 13:43 → 5E 17:02 → EDHOLD 17:02 → 5E 17:53
PROVIDERS: Internal Medicine; Nurse Practitioner; ADMIT Emergency Medicine
DX: A41.9 Sepsis, unspecified organism (principal); I50.33 Acute on chronic diastolic (congestive) heart failure; E44.0 Moderate protein-calorie malnutrition; J18.9 Pneumonia, unspecified organism; I13.0 Hypertensive heart and chronic kidney disease with heart failure and stage 1 through stage 4 chronic kidney disease, or unspecified chronic kidney disease; J44.0 Chronic obstructive pulmonary disease with (acute) lower respiratory infection; E11.22 Type 2 diabetes mellitus with diabetic chronic kidney disease; E87.1 Hypo-osmolality and hyponatremia; N18.3 Chronic kidney disease, stage 3 (moderate); Z96.651 Presence of right artificial knee joint; R65.20 Severe sepsis without septic shock; I48.2 Chronic atrial fibrillation; E03.9 Hypothyroidism, unspecified; G20 Parkinson's disease; M1A.9XX0 Chronic gout, unspecified, without tophus (tophi); D64.9 Anemia, unspecified; I25.708 Atherosclerosis of coronary artery bypass graft(s), unspecified, with other forms of angina pectoris; E55.9 Vitamin D deficiency, unspecified; E87.5 Hyperkalemia; E86.0 Dehydration; R82.71 Bacteriuria; E11.65 Type 2 diabetes mellitus with hyperglycemia; G30.9 Alzheimer's disease, unspecified; F02.80 Dementia in other diseases classified elsewhere, unspecified severity, without behavioral disturbance, psychotic disturbance, mood disturbance, and anxiety; Z95.1 Presence of aortocoronary bypass graft; Z83.6 Family history of other diseases of the respiratory system; Z86.73 Personal history of transient ischemic attack (TIA), and cerebral infarction without residual deficits; I25.2 Old myocardial infarction; Z83.3 Family history of diabetes mellitus; Z68.24 Body mass index [BMI] 24.0-24.9, adult; Z82.3 Family history of stroke; Z79.899 Other long term (current) drug therapy; Z79.84 Long term (current) use of oral hypoglycemic drugs; Z90.49 Acquired absence of other specified parts of digestive tract; Z90.710 Acquired absence of both cervix and uterus